=== PATIENT | male | born 1950 | race Caucasian/White ===

== ENCOUNTER 2017-07-12 13:21 | Emergency (ER) | payer MEDICARE, BC, OTHER ==
[~2017-07-12] VITALS: Ht 190.5 cm; Wt 127.0 kg
[~2017-07-12 13:21] MED LIST: ALLO300T2; ASPI81CH43; LOSA100T26
[2017-07-12] MEDS ORDERED: SODIUM CHLORIDE 0.9% 1,000 ML IV ONE (13:30)
[2017-07-12] MEDS ORDERED: ONDANSETRON HCL 4 MG/2 ML VIAL IV ONE (13:30)
[2017-07-12] MEDS ORDERED: HYDROmorphone HCL 2 MG/ML VL IV ONE (13:30)
[2017-07-12 14:17] LABS: Basophils # (auto) 0.1 uL; Basophils % (auto) 1.3 % (0.0-2.0); Eosinophils # (auto) 0.3 uL; Eosinophils % (auto) 3.9 % (0.0-7.0); Hematocrit 41.4 % (41.0-53.0); Hemoglobin 13.8 g/dL (13.5-17.5); Lymphocytes # (auto) 1.4 uL; Lymphocytes % (auto) 21.3 % (10.0-50.0); Mean Corpuscular Hemoglobin 33.5 pg (28.0-32.0); Mean Corpuscular Hgb Conc. 33.4 g/dL (32.0-36.0); Mean Corpuscular Volume 100.2 fL (80.0-100.0); Mean Platelet Volume 8.8 fL (6.9-10.8); Monocytes # (auto) 0.5 uL; Monocytes % (auto) 7.3 % (0.0-12.0); Neutrophils # (auto) 4.4 uL; Neutrophils % (auto) 66.2 % (37.0-80.0); Nucleated Red Blood Cells % 0.1 %; Platelet Count (auto) 143 10^3/uL (140-450); Red Cell Distribution Width 15.1 % (11.8-14.3); White Blood Cell 6.7 10^3/uL (4.4-10.8)
[2017-07-12 14:27] LABS: Albumin 3.1 g/dL (3.4-5.0); BUN/Creatinine Ratio 55.6; Bilirubin, Total 0.8 mg/dL (0.2-1.0); Potassium 4.6 mmol/L (3.5-5.1); Total Protein 7.1 g/dL (6.4-8.2)
[2017-07-12 14:36] VITALS: BP 147/66
== END 2017-07-12 17:49 | disposition home or self-care (01) ==
LOC: ER 13:21 → EDBD 13:21 → ER 17:49
DX: N39.0 Urinary tract infection, site not specified (principal); E87.1 Hypo-osmolality and hyponatremia; E86.0 Dehydration; E03.9 Hypothyroidism, unspecified; I10 Essential (primary) hypertension; E78.5 Hyperlipidemia, unspecified; F17.210 Nicotine dependence, cigarettes, uncomplicated; Z79.82 Long term (current) use of aspirin; Z88.0 Allergy status to penicillin
CPT/HCPCS: 36415; 74176; 80053; 81002; 85025; 96361; 96374; 96375; 99285; J1170; J2405

== ENCOUNTER 2017-08-08 12:18 | Inpatient (IN) | payer MEDICARE, OTHER ==
[~2017-08-08] VITALS: Ht 190.5 cm; Wt 131.0 kg
[~2017-08-08 12:18] MED LIST changes: -LOSA100T26; +LOSA100T33
[2017-08-08] MEDS ORDERED: VANCOMYCIN 1GM/250ML 250 ML IV ONE (12:45)
[2017-08-08] MEDS ORDERED: FUROSEMIDE 40 MG/4 ML VIAL IV ONE (12:45)
[2017-08-08] MEDS ORDERED: LEVOFLOXACIN 750MG 150 ML IV ONE (12:45)
[2017-08-08 13:29] LABS: Basophils # (auto) 0 uL; Basophils % (auto) 0.3 % (0.0-2.0); Eosinophils # (auto) 0.1 uL; Hematocrit 39.4 % (41.0-53.0); Lymphocytes % (auto) 12.8 % (10.0-50.0); Mean Corpuscular Hemoglobin 33.2 pg (28.0-32.0); Mean Corpuscular Hgb Conc. 33.1 g/dL (32.0-36.0); Mean Corpuscular Volume 100.2 fL (80.0-100.0); Mean Platelet Volume 8.2 fL (6.9-10.8); Monocytes # (auto) 0.6 uL; Monocytes % (auto) 7.9 % (0.0-12.0); Neutrophils # (auto) 5.8 uL; Platelet Count (auto) 102 10^3/uL (140-450); White Blood Cell 7.4 10^3/uL (4.4-10.8)
[2017-08-08 13:44] LABS: B-Type Natriuretic Peptide 16.7 pg/mL (0-100); Temperature: 23.5 C (20.0-25.0)
[2017-08-08] MEDS ORDERED: ALBUTEROL SULF 2.5 MG/0.5ML(0.5%) NEB SOLN NEB PRN (13:45)
[2017-08-08] MEDS ORDERED: TEMAZEPAM 15 MG CAP PO PRN (13:45)
[2017-08-08] MEDS ORDERED: OSELTAMIVIR 75 MG CAP PO ONE (13:45)
[2017-08-08] MEDS ORDERED: LACTULOSE 20Gm/30ML SOLN PO PRN (13:45)
[2017-08-08] MEDS ORDERED: PROMETHAZINE HCL 25 MG/ML 1ML IV PRN (13:45)
[2017-08-08] MEDS ORDERED: NITROGLYCERIN 0.4 MG SL TAB SL PRN (13:45)
[2017-08-08] MEDS ORDERED: MORPHINE SULF INJ 2 MG/ML SYRINGE 1ML IV PRN ×2 (13:45)
[2017-08-08] MEDS ORDERED: ACETAMINOPHEN 500 MG TAB PO PRN (13:45)
[2017-08-08] MEDS ORDERED: LORazepam 0.5 MG TAB PO PRN (13:45)
[2017-08-08] MEDS ORDERED: HYDROcodone-ACET 5/325MG TAB PO PRN (13:45)
[2017-08-08 13:47] LABS: Albumin 3.1 g/dL (3.4-5.0); Alkaline Phosphatase 86 U/L (45-117); Anion Gap 9 (5-15); Aspartate Aminotransferase 21 U/L (15-37); BUN/Creatinine Ratio 36.2; Blood Urea Nitrogen 21 mg/dL (7-18); Carbon Dioxide 26 mmol/L (21-32); Chloride 95 mmol/L (98-107); GFR African American 179 mL/min; GFR Non-African American 148 mL/min; Glucose 94 mg/dL (74-106); Sodium 130 mmol/L (136-145); Total Protein 7.3 g/dL (6.4-8.2)
[2017-08-08 13:56] LABS: Lactic Acid w/Reflex 2.2 mmol/L (0.4-2.0)
[2017-08-08] MEDS ORDERED: CLINDAMYCIN 600MG IV 50 ML IV SCH (14:00)
[2017-08-08 14:21] LABS: REFLEX LACTIC ACID YES OR NO YES
[2017-08-08 14:23] LABS: Urine Bilirubin Negative (Negative); Urine Blood Negative /uL (Negative); Urine Color Yellow (Yellow); Urine Glucose Normal (Normal); Urine Ketone Negative (Negative); Urine Nitrite POSITIVE (Negative); Urine RBC <1 /hpf (0 - 3); Urine Urobilinogen Normal (Negative)
[2017-08-08] MEDS: SODIUM CHLORIDE 0.9% 1,000 ML IV SCH (15:14)
[2017-08-08] MEDS ORDERED: FURO20TA3 PO (15:33)
[2017-08-08] MEDS ORDERED: ALLO300T79 PO (15:33)
[2017-08-08] MEDS ORDERED: [UNRECOGNIZED DRUG - CODE] PO (15:33)
[2017-08-08] MEDS ORDERED: ALFU10TA12 PO (15:33)
[2017-08-08] MEDS ORDERED: LEVO175T31 PO (15:33)
[2017-08-08] MEDS ORDERED: LOSA50TA6 PO (15:33)
[2017-08-08] MEDS ORDERED: ASPI-378 PO (15:33)
[2017-08-08] MEDS ORDERED: NICOTINE 14 MG/24HR TOPICAL PATCH TD ONE (15:45)
[2017-08-08] MEDS ORDERED: VANCOMYCIN PER PHARMACY 0 MG IV SCH (17:00)
[2017-08-08] MEDS ORDERED: AZITHROMYCIN 500MG/ 250ML 250 ML IV ONE (17:00)
[2017-08-08] MEDS: ALBUTEROL SULF 2.5 MG/0.5ML(0.5%) NEB SOLN NEB SCH (18:21)
[2017-08-08] MEDS: IPRATROPIUM BROM 0.5 MG/2.5ML INH SOL NEB SCH (18:21)
[2017-08-08 18:59] VITALS: BP 101/62
[2017-08-08 20:20] VITALS: BP 97/62
[2017-08-08] MEDS: VANCOMYCIN 1GM/250ML 250 ML IV SCH (21:35)
[2017-08-08] MEDS: OSELTAMIVIR 75 MG CAP PO SCH (21:47)
[2017-08-08 22:21] VITALS: BP 97/62
[2017-08-09] MEDS: IPRATROPIUM BROM 0.5 MG/2.5ML INH SOL NEB SCH ×4 (00:31→19:36)
[2017-08-09] MEDS: ALBUTEROL SULF 2.5 MG/0.5ML(0.5%) NEB SOLN NEB SCH ×4 (00:31→19:36)
[2017-08-09] MEDS: SODIUM CHLORIDE 0.9% 1,000 ML IV SCH (03:30)
[2017-08-09] MEDS: VANCOMYCIN 1GM/250ML 250 ML IV SCH ×3 (04:36→21:25)
[2017-08-09 04:57] VITALS: BP 112/50
[2017-08-09 06:34] LABS: Basophils # (auto) 0 uL; Basophils % (auto) 0.3 % (0.0-2.0); Eosinophils # (auto) 0.1 uL; Eosinophils % (auto) 2.2 % (0.0-7.0); Hematocrit 35.4 % (41.0-53.0); Hemoglobin 12.2 g/dL (13.5-17.5); Mean Corpuscular Hemoglobin 33.5 pg (28.0-32.0); Mean Corpuscular Hgb Conc. 34.3 g/dL (32.0-36.0); Mean Corpuscular Volume 97.7 fL (80.0-100.0); Mean Platelet Volume 8.3 fL (6.9-10.8); Monocytes # (auto) 0.5 uL; Monocytes % (auto) 7.6 % (0.0-12.0); Neutrophils # (auto) 4.8 uL; Neutrophils % (auto) 73.9 % (37.0-80.0); Platelet Count (auto) 85 10^3/uL (140-450); Red Cell Distribution Width 14.7 % (11.8-14.3); White Blood Cell 6.4 10^3/uL (4.4-10.8)
[2017-08-09 06:50] LABS: BUN/Creatinine Ratio 44.4; Calcium 8.5 mg/dL (8.5-10.1); Potassium 3.5 mmol/L (3.5-5.1)
[2017-08-09 09:00] VITALS: BP 105/64
[2017-08-09] MEDS: OSELTAMIVIR 75 MG CAP PO SCH (09:47)
[2017-08-09] MEDS ORDERED: ENOXAPARIN SOD 40 MG/0.4 ML SYRINGE SC SCH (10:00)
[2017-08-09] MEDS ORDERED: AZITHROMYCIN 500MG/ 250ML 250 ML IV SCH (10:00)
[2017-08-09] MEDS ORDERED: LEVOFLOXACIN 500MG 100 ML IV SCH (10:00)
[2017-08-09] MEDS: NICOTINE 14 MG/24HR TOPICAL PATCH TD SCH (10:16)
[2017-08-09] MEDS ORDERED: POTASSIUM CHL 10% (20 MEQ/15ML) 15ml ORAL SOLN PO ONE (10:45)
[2017-08-09] MEDS ORDERED: cefTRIAXone 1GM/10ml IVPUSH 10 ML IV ONE (10:45)
[2017-08-09] MEDS ORDERED: FUROSEMIDE 20 MG/2 ML VIAL IV ONE (10:45)
[2017-08-09] MEDS ORDERED: ASPirin 81 mg TAB PO ONE (11:00)
[2017-08-09] MEDS ORDERED: LEVOTHYROXINE SODIUM 50 MCG TAB PO ONE (11:00)
[2017-08-09 13:00] VITALS: BP 161/92
[2017-08-09 17:12] VITALS: BP 114/59
[2017-08-10 00:13] LABS: Allen Test Yes; Base Excess 1.6 mmol/L (-2.0-2.0); Blood 02Sat 75.8 % (96-100); Blood COHb 1.2 % (0.5-1.5); Blood MetHb 0.2 % (0.0-1.5); HCO3 24.9 mmol/L (22-26.0); HHb 23.9 % (0.0-5.0); MODE MED NEB; O2Hb 74.7 % (94.0-97.0); PO2 39.7 mmHg (80.0-100.0); PO2(T) 39.7 mmHg (80.0-100.0); Room 0219T; Sample Type Arterial
[2017-08-10] MEDS: ALBUTEROL SULF 2.5 MG/0.5ML(0.5%) NEB SOLN NEB SCH ×4 (00:14→19:45)
[2017-08-10] MEDS: IPRATROPIUM BROM 0.5 MG/2.5ML INH SOL NEB SCH ×4 (00:14→19:48)
[2017-08-10] MEDS: LEVOTHYROXINE SODIUM 50 MCG TAB PO SCH (05:49)
[2017-08-10] MEDS: VANCOMYCIN 1GM/250ML 250 ML IV SCH ×3 (05:49→21:12)
[2017-08-10 05:56] LABS: Basophils # (auto) 0 uL; Basophils % (auto) 0.5 % (0.0-2.0); Eosinophils # (auto) 0.2 uL; Eosinophils % (auto) 2.1 % (0.0-7.0); Hematocrit 35.2 % (41.0-53.0); Hemoglobin 11.9 g/dL (13.5-17.5); Lymphocytes # (auto) 1.2 uL; Mean Corpuscular Hemoglobin 33.6 pg (28.0-32.0); Mean Corpuscular Hgb Conc. 33.7 g/dL (32.0-36.0); Mean Corpuscular Volume 99.8 fL (80.0-100.0); Mean Platelet Volume 8.6 fL (6.9-10.8); Monocytes # (auto) 0.6 uL; Monocytes % (auto) 8.2 % (0.0-12.0); Neutrophils # (auto) 5.2 uL; Neutrophils % (auto) 72.2 % (37.0-80.0); Nucleated Red Blood Cells % 0.1 %; Platelet Count (auto) 85 10^3/uL (140-450); Red Cell Distribution Width 14.7 % (11.8-14.3); White Blood Cell 7.1 10^3/uL (4.4-10.8)
[2017-08-10 06:07] LABS: Albumin 2.4 g/dL (3.4-5.0); BUN/Creatinine Ratio 43.2; Calcium 8.3 mg/dL (8.5-10.1); Potassium 3.5 mmol/L (3.5-5.1); Total Protein 6.2 g/dL (6.4-8.2)
[2017-08-10 06:08] VITALS: BP 115/64
[2017-08-10 09:00] VITALS: BP 115/64
[2017-08-10] MEDS: cefTRIAXone 1GM/10ml IVPUSH 10 ML IV SCH (09:10)
[2017-08-10] MEDS: ASPirin 81 mg TAB PO SCH (09:10)
[2017-08-10] MEDS: ALLOPURINOL 300 MG TAB PO SCH (09:11)
[2017-08-10] MEDS: NICOTINE 14 MG/24HR TOPICAL PATCH TD SCH (09:12)
[2017-08-10] MEDS: PROPRANOLOL HCL 20 MG TAB PO SCH (09:13)
[2017-08-10] MEDS ORDERED: FUROSEMIDE 20 MG/2 ML VIAL IV ONE (10:00)
[2017-08-10] MEDS ORDERED: POTASSIUM CHL 10% (20 MEQ/15ML) 15ml ORAL SOLN PO ONE (10:00)
[2017-08-10 13:00] VITALS: BP 131/89
[2017-08-10 21:01] VITALS: BP 93/56
[2017-08-11] MEDS: ALBUTEROL SULF 2.5 MG/0.5ML(0.5%) NEB SOLN NEB SCH ×4 (00:35→18:24)
[2017-08-11] MEDS: IPRATROPIUM BROM 0.5 MG/2.5ML INH SOL NEB SCH ×4 (00:35→18:24)
[2017-08-11] MEDS: VANCOMYCIN 1GM/250ML 250 ML IV SCH (03:19)
[2017-08-11 05:00] VITALS: BP 113/69
[2017-08-11] MEDS: LEVOTHYROXINE SODIUM 50 MCG TAB PO SCH (05:58)
[2017-08-11 06:15] LABS: BUN/Creatinine Ratio 33.9; Calcium 8.1 mg/dL (8.5-10.1); Potassium 3.9 mmol/L (3.5-5.1)
[2017-08-11 09:00] VITALS: BP 91/61
[2017-08-11] MEDS: cefTRIAXone 1GM/10ml IVPUSH 10 ML IV SCH (09:01)
[2017-08-11] MEDS: PROPRANOLOL HCL 20 MG TAB PO SCH (10:00)
[2017-08-11] MEDS: NICOTINE 14 MG/24HR TOPICAL PATCH TD SCH (10:36)
[2017-08-11] MEDS: ALLOPURINOL 300 MG TAB PO SCH (10:36)
[2017-08-11] MEDS: ASPirin 81 mg TAB PO SCH (10:36)
[2017-08-11 12:35] VITALS: BP 87/51
[2017-08-11 17:00] VITALS: BP 116/68
[2017-08-11 21:55] VITALS: BP 116/68
[2017-08-11 22:00] VITALS: BP 105/63
[2017-08-12] MEDS: IPRATROPIUM BROM 0.5 MG/2.5ML INH SOL NEB SCH ×4 (00:13→19:20)
[2017-08-12] MEDS: ALBUTEROL SULF 2.5 MG/0.5ML(0.5%) NEB SOLN NEB SCH ×4 (00:13→19:20)
[2017-08-12 05:00] VITALS: BP 103/63
[2017-08-12 05:24] LABS: Eosinophils # (auto) 0.2 uL; Red Cell Distribution Width 14.5 % (11.8-14.3)
[2017-08-12 05:26] LABS: Basophils # (auto) 0 uL; Basophils % (auto) 0.6 % (0.0-2.0); Eosinophils % (auto) 3.7 % (0.0-7.0); Hematocrit 35.4 % (41.0-53.0); Hemoglobin 12.1 g/dL (13.5-17.5); Lymphocytes # (auto) 1.4 uL; Lymphocytes % (auto) 21.4 % (10.0-50.0); Mean Corpuscular Hemoglobin 33.4 pg (28.0-32.0); Mean Corpuscular Hgb Conc. 34.1 g/dL (32.0-36.0); Mean Corpuscular Volume 98.1 fL (80.0-100.0); Mean Platelet Volume 8.4 fL (6.9-10.8); Monocytes # (auto) 0.6 uL; Monocytes % (auto) 9.8 % (0.0-12.0); Neutrophils # (auto) 4.2 uL; Neutrophils % (auto) 64.5 % (37.0-80.0); Platelet Count (auto) 136 10^3/uL (140-450); White Blood Cell 6.6 10^3/uL (4.4-10.8)
[2017-08-12 05:38] LABS: INR 0.98 (0.9-1.15); Prothrombin Time 10.7 sec (9.37-12.3)
[2017-08-12 05:41] LABS: Calcium 8.3 mg/dL (8.5-10.1); Potassium 4.2 mmol/L (3.5-5.1)
[2017-08-12 05:44] LABS: Albumin 2.3 g/dL (3.4-5.0); Magnesium 2.2 mg/dL (1.6-2.6)
[2017-08-12 05:47] LABS: Bilirubin, Total 0.8 mg/dL (0.2-1.0); Total Protein 6.2 g/dL (6.4-8.2)
[2017-08-12 06:13] VITALS: BP 103/63
[2017-08-12] MEDS: LEVOTHYROXINE SODIUM 50 MCG TAB PO SCH (06:20)
[2017-08-12 09:00] VITALS: BP 115/74
[2017-08-12] MEDS: PROPRANOLOL HCL 20 MG TAB PO SCH (10:00)
[2017-08-12] MEDS ORDERED: FUROSEMIDE 20 MG/2 ML VIAL IV ONE (10:15)
[2017-08-12] MEDS ORDERED: POTASSIUM CHL 10% (20 MEQ/15ML) 15ml ORAL SOLN PO ONE (10:15)
[2017-08-12] MEDS ORDERED: DOCUSATE SOD 100 MG CAP PO ONE (10:15)
[2017-08-12] MEDS ORDERED: LACTULOSE 20Gm/30ML SOLN PO ONE (10:15)
[2017-08-12] MEDS: ALLOPURINOL 300 MG TAB PO SCH (10:35)
[2017-08-12] MEDS: NICOTINE 14 MG/24HR TOPICAL PATCH TD SCH (10:36)
[2017-08-12] MEDS: ASPirin 81 mg TAB PO SCH (10:36)
[2017-08-12] MEDS: cefTRIAXone 1GM/10ml IVPUSH 10 ML IV SCH (10:39)
[2017-08-12 13:00] VITALS: BP 117/68
[2017-08-12 17:00] VITALS: BP 126/79
[2017-08-12] MEDS: VANCOMYCIN 1GM/250ML 250 ML IV SCH (17:41)
[2017-08-12] MEDS: MULTIPLE VITAMINS W/ MINERALS TAB PO SCH (17:41)
[2017-08-12 22:00] VITALS: BP 111/52
[2017-08-12] MEDS: ASCORBIC ACID 500 MG TAB PO SCH (22:14)
[2017-08-13] MEDS: IPRATROPIUM BROM 0.5 MG/2.5ML INH SOL NEB SCH ×4 (00:43→19:22)
[2017-08-13] MEDS: ALBUTEROL SULF 2.5 MG/0.5ML(0.5%) NEB SOLN NEB SCH ×4 (00:43→19:17)
[2017-08-13 06:00] VITALS: BP 119/51
[2017-08-13] MEDS: LEVOTHYROXINE SODIUM 50 MCG TAB PO SCH (06:21)
[2017-08-13 07:58] LABS: Albumin 2.3 g/dL (3.4-5.0); BUN/Creatinine Ratio 40.4; Bilirubin, Total 0.9 mg/dL (0.2-1.0); Calcium 8.4 mg/dL (8.5-10.1); Potassium 4.1 mmol/L (3.5-5.1); Total Protein 6.2 g/dL (6.4-8.2)
[2017-08-13] MEDS: cefTRIAXone 1GM/10ml IVPUSH 10 ML IV SCH ×2 (09:00→11:32)
[2017-08-13] MEDS: PROPRANOLOL HCL 20 MG TAB PO SCH (10:00)
[2017-08-13] MEDS ORDERED: FUROSEMIDE 40 MG/4 ML VIAL IV ONE (10:15)
[2017-08-13] MEDS ORDERED: POTASSIUM CHL 10% (20 MEQ/15ML) 15ml ORAL SOLN PO ONE (10:15)
[2017-08-13] MEDS: ASPirin 81 mg TAB PO SCH (11:32)
[2017-08-13] MEDS: ASCORBIC ACID 500 MG TAB PO SCH ×2 (11:32→22:10)
[2017-08-13] MEDS: ALLOPURINOL 300 MG TAB PO SCH (11:33)
[2017-08-13] MEDS: NICOTINE 14 MG/24HR TOPICAL PATCH TD SCH (11:33)
[2017-08-13] MEDS: MULTIPLE VITAMINS W/ MINERALS TAB PO SCH (11:33)
[2017-08-13] MEDS: VANCOMYCIN 1GM/250ML 250 ML IV SCH (17:10)
[2017-08-13 22:00] VITALS: BP 97/55
[2017-08-14] MEDS: IPRATROPIUM BROM 0.5 MG/2.5ML INH SOL NEB SCH ×3 (00:35→11:48)
[2017-08-14] MEDS: ALBUTEROL SULF 2.5 MG/0.5ML(0.5%) NEB SOLN NEB SCH ×3 (00:35→11:48)
[2017-08-14 05:00] VITALS: BP 95/57
[2017-08-14 06:34] LABS: Albumin 2.2 g/dL (3.4-5.0); BUN/Creatinine Ratio 34.3; Bilirubin, Total 0.5 mg/dL (0.2-1.0); Calcium 8.7 mg/dL (8.5-10.1); Potassium 4.1 mmol/L (3.5-5.1); Total Protein 6.2 g/dL (6.4-8.2)
[2017-08-14] MEDS: LEVOTHYROXINE SODIUM 50 MCG TAB PO SCH (06:58)
[2017-08-14 08:54] VITALS: BP 109/72
[2017-08-14] MEDS: cefTRIAXone 1GM/10ml IVPUSH 10 ML IV SCH (10:00)
[2017-08-14] MEDS: PROPRANOLOL HCL 20 MG TAB PO SCH (10:00)
[2017-08-14] MEDS: ASCORBIC ACID 500 MG TAB PO SCH (12:13)
[2017-08-14] MEDS: MULTIPLE VITAMINS W/ MINERALS TAB PO SCH (12:13)
[2017-08-14] MEDS: ASPirin 81 mg TAB PO SCH (12:13)
[2017-08-14] MEDS: ALLOPURINOL 300 MG TAB PO SCH (12:13)
[2017-08-14] MEDS: NICOTINE 14 MG/24HR TOPICAL PATCH TD SCH (12:14)
[2017-08-14 12:28] VITALS: BP 123/76
== END 2017-08-14 14:45 | DRG 871 ==
LOC: EDUNIT# 12:18 → ER 12:18 → EDBD 12:18 → TELE 12:19 → TELE-CENTR 20:11 → CENTRAL 21:39 → TELE-CENTR 21:41
PROVIDERS: ADMIT Internal Medicine; ATTEND Internal Medicine
DX: A41.89 Other specified sepsis (principal); J69.0 Pneumonitis due to inhalation of food and vomit; I50.33 Acute on chronic diastolic (congestive) heart failure; G71.0 Muscular dystrophy; L03.115 Cellulitis of right lower limb; L03.116 Cellulitis of left lower limb; E66.9 Obesity, unspecified; E03.9 Hypothyroidism, unspecified; D69.6 Thrombocytopenia, unspecified; E78.5 Hyperlipidemia, unspecified; F17.210 Nicotine dependence, cigarettes, uncomplicated; I11.0 Hypertensive heart disease with heart failure; K59.00 Constipation, unspecified; Z98.84 Bariatric surgery status; Z68.36 Body mass index [BMI] 36.0-36.9, adult; Z88.0 Allergy status to penicillin
CPT/HCPCS: 36415; 36600; 71010; 80048; 80053; 80202; 81001; 82805; 83605; 83735; 83880; 84443; 84484; 85025; 85610; 87040; 87070; 87205; 87400; 92610; 93005; 93306; 93970; 94640; 94660; 96365; 96366; 96367; J1956; J3490

== ENCOUNTER → 2017-10-16 | Outpatient (CLI) | payer OTHER ==
[~2017-10-16] MED LIST changes: +ALFU10TA12 PO; -ALLO300T2; +ALLO300T79 PO; +ASPI-378 PO; -ASPI81CH43; +FURO20TA3 PO; +LEVO175T31 PO; -LOSA100T33; +LOSA50TA6 PO; +[UNRECOGNIZED DRUG - CODE] PO
== END | disposition home or self-care (01) ==
LOC: LAB 16:14
PROVIDERS: ATTEND Urology
DX: N39.0 Urinary tract infection, site not specified (principal); R33.9 Retention of urine, unspecified; R32 Unspecified urinary incontinence
CPT/HCPCS: 87086; 87088; 87186

== ENCOUNTER 2019-06-03 08:40 | Inpatient (IN) | payer MEDICARE, BC, OTHER ==
[~2019-06-03] VITALS: Ht 190.5 cm; Wt 120.3 kg
[~2019-06-03 08:40] MED LIST changes: +ALLO-52 PO; -ALLO300T79 PO; -LEVO175T31 PO; +LOSA-69 PO; -LOSA50TA6 PO; +[UNRECOGNIZED DRUG - CODE] PO; -[UNRECOGNIZED DRUG - CODE] PO
[2019-06-03] MEDS ORDERED: IPRATROPIUM BROM 0.5 MG/2.5ML INH SOL HHN ONE (09:45)
[2019-06-03] MEDS ORDERED: ALBUTEROL SULF 2.5 MG/0.5ML(0.5%) NEB SOLN HHN ONE (09:45)
[2019-06-03] MEDS ORDERED: FUROSEMIDE 40 MG/4 ML VIAL IV ONE (09:45)
[2019-06-03] MEDS ORDERED: LEVOFLOXACIN 500MG 100 ML IV ONE (09:45)
[2019-06-03 10:18] LABS: Basophils # (auto) 0 uL; Basophils % (auto) 0.6 % (0.0-2.0); Eosinophils # (auto) 0.1 uL; Eosinophils % (auto) 1.5 % (0.0-7.0); Hematocrit 43.8 % (41.0-53.0); Hemoglobin 14.2 g/dL (13.5-17.5); Lymphocytes # (auto) 1.1 uL; Lymphocytes % (auto) 14.6 % (10.0-50.0); Mean Corpuscular Hemoglobin 31.2 pg (28.0-32.0); Mean Corpuscular Hgb Conc. 32.5 g/dL (32.0-36.0); Mean Corpuscular Volume 96.1 fL (80.0-100.0); Monocytes # (auto) 0.8 uL; Monocytes % (auto) 10.5 % (0.0-12.0); Neutrophils # (auto) 5.3 uL; Neutrophils % (auto) 72.8 % (37.0-80.0); Nucleated Red Blood Cells % 0.1 %; Platelet Count (auto) 230 10^3/uL (140-450); Red Blood Cells 4.56 10^6/uL (4.5-5.90); Red Cell Distribution Width 15.8 % (11.8-14.3); White Blood Cell 7.3 10^3/uL (4.4-10.8)
[2019-06-03 10:25] LABS: Albumin 2.8 g/dL (3.4-5.0); Anion Gap 8 (5-15); BUN/Creatinine Ratio 41.3; Blood Urea Nitrogen 19 mg/dL (7-18); Calcium 9.6 mg/dL (8.5-10.1); Carbon Dioxide 28 mmol/L (21-32); Chloride 97 mmol/L (98-107); GFR African American 233 mL/min; GFR Non-African American 192 mL/min; Glucose 100 mg/dL (74-106); Potassium 3.7 mmol/L (3.5-5.1); Sodium 133 mmol/L (136-145)
[2019-06-03 10:34] LABS: Alanine Aminotransferase 19 U/L (16-61); Alkaline Phosphatase 95 U/L (45-117); Aspartate Aminotransferase 15 U/L (15-37); Bilirubin, Total 0.9 mg/dL (0.2-1.0); Total Protein 7.6 g/dL (6.4-8.2)
[2019-06-03] MEDS ORDERED: MORPHINE SULF INJ 2 MG/ML SYRINGE 1ML IV PRN ×2 (11:45)
[2019-06-03] MEDS ORDERED: ACETAMINOPHEN 500 MG TAB PO PRN (11:45)
[2019-06-03] MEDS ORDERED: NITROGLYCERIN 0.4 MG SL TAB SL PRN (11:45)
[2019-06-03] MEDS ORDERED: HYDROcodone-ACET 5/325MG TAB PO PRN (11:45)
[2019-06-03] MEDS ORDERED: ONDANSETRON HCL 4 MG/2 ML VIAL IV PRN (11:45)
[2019-06-03] MEDS ORDERED: ACETYLCYSTEINE 10 %(100MG/ML) SOL 4ML NEB ONE (11:45)
[2019-06-03] MEDS ORDERED: cefTRIAXone 1GM/50ML D5W 50 ML IV ONE (12:30)
[2019-06-03] MEDS ORDERED: methylPREDNISolone SOD SUCC 125 MG/2 ML VL IV ONE (12:30)
[2019-06-03] MEDS ORDERED: ASPirin-EC 81 mg tab PO ONE (12:30)
[2019-06-03] MEDS ORDERED: ALLOPURINOL 300 MG TAB PO ONE (12:30)
[2019-06-03] MEDS ORDERED: FAMOTIDINE 20 MG TAB PO ONE (12:30)
[2019-06-03] MEDS ORDERED: LOSARTAN POTASSIUM 50 MG TAB PO ONE (12:30)
[2019-06-03] MEDS ORDERED: AZITHROMYCIN 500MG/ 250ML 250 ML IV ONE (12:30)
[2019-06-03] MEDS ORDERED: FUROSEMIDE 20 MG TAB PO ONE (12:30)
[2019-06-03] MEDS ORDERED: methylPREDNISolone SOD SUCC 125 MG/2 ML VL IV SCH (12:30)
[2019-06-03 14:00] VITALS: BP 111/82
[2019-06-03] MEDS ORDERED: ALBUTEROL SULF 2.5 MG/0.5ML(0.5%) NEB SOLN NEB SCH (14:00)
[2019-06-03] MEDS ORDERED: IPRATROPIUM BROM 0.5 MG/2.5ML INH SOL NEB SCH (14:00)
--- NOTE | 2019-06-03 14:20 | NUR ---
Received patient from ER via gurney, patient VS 111/82, 74, 22, 98%, 98.7. Patient on 3 L NC, and Wong. Patients bed in locked and lowest position with call light within reach. Will continue to monitor.
[2019-06-03 17:00] VITALS: BP 93/61
--- NOTE | 2019-06-03 17:01 | NUR ---
SWALLOW EVALUATED. PATIENT HAS OWN TEETH. PATIENT FOLLOWED ONE STEP DIRECTIONS. PATIENT VERY CONGESTED. VOICE SOUNDED WET PRIOR TO SWALLOW EVALUATION. PATIENT ABLE TO TOLERATE PUREE DIET TEXTURE WITH THIN LIQUIDS WITH NO OVERT SIGNS OR SYMPTOMS OF ASPIRATION. NURSING NOTIFIED.
[2019-06-03] MEDS ORDERED: ALBUTEROL SULF 2.5 MG/0.5ML(0.5%) NEB SOLN HHN SCH (18:00)
--- NOTE | 2019-06-03 19:20 | NUR ---
Opening Shift Note Assumed care of patient, sitting up in bed awake and alert. Patient on 4L NC presenting no S/S of distress or SOB. Denies pain at this time. CHIVO IV patent, secured and saline locked. Instructed on POC and to call for assist PRN, patient verbalizes understanding. Will continue to monitor for changes Q1hr and PRN.
[2019-06-03] MEDS: ACETYLCYSTEINE 20%(200MG/ML) SOL 4ML NEB SCH (19:23)
[2019-06-03] MEDS: ALBUTEROL SULF 2.5 MG/0.5ML(0.5%) NEB SOLN NEB SCH (19:23)
[2019-06-03] MEDS: IPRATROPIUM BROM 0.5 MG/2.5ML INH SOL NEB SCH (19:23)
--- NOTE | 2019-06-03 21:30 | NUR ---
PATIENT ON CPAP MACHINE. PATIENT TOLERATED WELL. RT AT BED SIDE
[2019-06-03] MEDS: methylPREDNISolone SOD SUCC 125 MG/2 ML VL IV SCH (21:47)
--- NOTE | 2019-06-03 21:51 | NUR ---
PATIENT REPOSITIONED FOR COMFORT. PATIENT TOLERATED WELL. TOTAL/ MAX ASSIST NEEDED. WILL CONTINUE TURNING/ REDISTRIBUTING PRESSURE Q2H AND PRN.
[2019-06-03 22:00] VITALS: BP 109/69
[2019-06-04] MEDS: IPRATROPIUM BROM 0.5 MG/2.5ML INH SOL NEB SCH ×5 (00:21→23:55)
[2019-06-04] MEDS: ALBUTEROL SULF 2.5 MG/0.5ML(0.5%) NEB SOLN NEB SCH ×5 (00:21→23:55)
[2019-06-04] MEDS: ACETYLCYSTEINE 20%(200MG/ML) SOL 4ML NEB SCH ×5 (00:22→23:56)
[2019-06-04 05:00] VITALS: BP 109/56
--- NOTE | 2019-06-04 06:05 | NUR ---
RT AT BED SIDE
[2019-06-04 06:15] LABS: Basophils # (auto) 0 uL; Basophils % (auto) 0.1 % (0.0-2.0); Eosinophils # (auto) 0 uL; Hematocrit 39.6 % (41.0-53.0); Hemoglobin 13.2 g/dL (13.5-17.5); Lymphocytes # (auto) 0.8 uL; Lymphocytes % (auto) 13.8 % (10.0-50.0); Mean Corpuscular Hemoglobin 32.1 pg (28.0-32.0); Mean Corpuscular Hgb Conc. 33.4 g/dL (32.0-36.0); Mean Corpuscular Volume 96.1 fL (80.0-100.0); Monocytes # (auto) 0.1 uL; Monocytes % (auto) 2.3 % (0.0-12.0); Neutrophils # (auto) 4.9 uL; Neutrophils % (auto) 83.8 % (37.0-80.0); Platelet Count (auto) 224 10^3/uL (140-450); Red Blood Cells 4.12 10^6/uL (4.5-5.90); Red Cell Distribution Width 15.4 % (11.8-14.3); White Blood Cell 5.9 10^3/uL (4.4-10.8)
[2019-06-04 06:41] LABS: BUN/Creatinine Ratio 46.3; Calcium 9.6 mg/dL (8.5-10.1); Potassium 3.8 mmol/L (3.5-5.1)
--- NOTE | 2019-06-04 07:50 | NUR ---
Coughing, with thick white phlegm noted.
--- NOTE | 2019-06-04 07:50 | NUR ---
Patient awake, hard of hearing, oriented x4, on O2, needs assist with feeding, bed bound. Sitter at bedside.
--- NOTE | 2019-06-04 08:29 | NUR ---
RT NOTE: PT. TOOK OFF BIPAP, PER PT. REQUEST. PT. PLACED ON 3L N/C. PT. TOLERATING WELL. PT. HR 76, RR 20, POX 95% 3L NC. SITTER AT BEDSIDE.
[2019-06-04 09:00] VITALS: BP 98/57
[2019-06-04] MEDS: LOSARTAN POTASSIUM 50 MG TAB PO SCH (10:00)
[2019-06-04] MEDS: cefTRIAXone 1GM/50ML D5W 50 ML IV SCH (10:14)
[2019-06-04] MEDS: methylPREDNISolone SOD SUCC 125 MG/2 ML VL IV SCH ×2 (10:14→21:52)
[2019-06-04] MEDS: FUROSEMIDE 20 MG TAB PO SCH (10:15)
[2019-06-04] MEDS: ALLOPURINOL 300 MG TAB PO SCH (10:15)
[2019-06-04] MEDS: ASPirin-EC 81 mg tab PO SCH (10:16)
[2019-06-04] MEDS: FAMOTIDINE 20 MG TAB PO SCH (10:17)
[2019-06-04] MEDS: AZITHROMYCIN 500MG/ 250ML 250 ML IV SCH (10:17)
--- NOTE | 2019-06-04 10:33 | NUR ---
Dr. Mcgee at bedside. made aware patient's Respiratory Culture In Process since yesterday, 06/03/2019.
--- NOTE | 2019-06-04 11:15 | NUR ---
Paged the Respiratory Therapist.
--- NOTE | 2019-06-04 12:30 | NUR ---
Patient refused to be turned.
[2019-06-04 13:00] VITALS: BP 90/54
--- NOTE | 2019-06-04 13:00 | NUR ---
Dr. Mcgee made aware that Unit SecSam Mckinney called the ENT office but the doctor is out of town. Dr. Mcgee said he already called the ENT and left a message.
--- NOTE | 2019-06-04 13:02 | NUR ---
Patient complained that he choked more on Pureed Diet, stated he eats chopped food at home. Dr. Mcgee made aware. ordered Chopped Fine. Patient was on Cardiac Diet.
--- NOTE | 2019-06-04 16:10 | NUR ---
Turned the patient, redness noted on the buttocks area, no pressure ulcer noted, skin is intact. Sitter at bedside.
--- NOTE | 2019-06-04 16:30 | NUR ---
Lindsay smith at bedside. Patient requested for a laxative if he's unable to have a bowel movement. Terrell Swartz at bedside. Paged Dr. Mgcee.
[2019-06-04 16:58] VITALS: BP 89/56
--- NOTE | 2019-06-04 19:22 | NUR ---
Opening Shift Note Assumed care of patient, awake and alert. Patient on 3L NC. No S/S of distress/SOB or pain. Instructed on POC and to call for assist PRN, will continue to monitor for changes Q1hr and PRN. Sitter at bed side.
[2019-06-04 22:00] VITALS: BP 109/76
--- NOTE | 2019-06-05 02:00 | NUR ---
RAPID INFLUENZA A & B NARES SWAB COLLECTED AND SET TO LAB
[2019-06-05 05:00] VITALS: BP 104/61
[2019-06-05] MEDS: ACETYLCYSTEINE 20%(200MG/ML) SOL 4ML NEB SCH ×3 (06:21→18:21)
[2019-06-05] MEDS: ALBUTEROL SULF 2.5 MG/0.5ML(0.5%) NEB SOLN NEB SCH ×3 (06:21→18:20)
[2019-06-05] MEDS: IPRATROPIUM BROM 0.5 MG/2.5ML INH SOL NEB SCH ×3 (06:21→18:21)
--- NOTE | 2019-06-05 07:22 | NUR ---
Respiratory note: PT AWAKE AND REQUESTING TO COME OFF BIPAP. TOOK PT OFF BIPAP, PLACED ON 3L NC. HR 68, RR 22, POX 95%. BREATH SOUNDS COARSE CRACKLES. PT COUGHING AND REQUESTING DEEP SUCTION, SUCTIONED MODERATE AMOUNT THICK YELLOW SECRETIONS. PT WITH STRONG COUGH, ABLE TO COUGH UP REMAINING SECRETIONS, ORALLY SUCTIONED WITH BEDSIDE YAUNKER LARGE AMOUNT THICK YELLOW/CLEAR FROTHY SECRETIONS. SITTER AT BEDSIDE, AWARE TO SUCTION WITH BEDSIDE YAUNKER IF NEEDED.
--- NOTE | 2019-06-05 07:25 | NUR ---
Opening shift note Report received from NOC RN, Round made with this RN. Patient sitting up in bed coughing after receiving respiratory treatment. Respiratory therapist notified this RN that patient reporting continued congestion and requesting to use home nasal spray at bedside. This RN will ask MD on rounds about nasal spray and if patient can use own medication. Day Tejada, at bedside to assist patient as needed. Patient introduced to this RN and POC, understands to let ross know if any needs.
[2019-06-05 09:00] VITALS: BP 126/49
[2019-06-05] MEDS ORDERED: OXYM-15 (09:07)
[2019-06-05] MEDS ORDERED: FLUT0.05 NAS (09:08)
[2019-06-05] MEDS: ASPirin-EC 81 mg tab PO SCH (09:56)
[2019-06-05] MEDS: FUROSEMIDE 20 MG TAB PO SCH (09:57)
[2019-06-05] MEDS: LOSARTAN POTASSIUM 50 MG TAB PO SCH (09:57)
[2019-06-05] MEDS: FAMOTIDINE 20 MG TAB PO SCH (09:57)
[2019-06-05] MEDS: ALLOPURINOL 300 MG TAB PO SCH (09:57)
[2019-06-05] MEDS: cefTRIAXone 1GM/50ML D5W 50 ML IV SCH (09:58)
[2019-06-05] MEDS: AZITHROMYCIN 500MG/ 250ML 250 ML IV SCH (09:58)
[2019-06-05] MEDS: methylPREDNISolone SOD SUCC 125 MG/2 ML VL IV SCH ×2 (09:58→23:30)
[2019-06-05] MEDS ORDERED: LIDOCAINE HCL 2 % INJ 2ML MPF NEB ONE (10:00)
--- NOTE | 2019-06-05 10:02 | NUR ---
Pulmonology rounded Dr. Mcgee at bedside decided to do therapeutic bronchoscopy, patient verbalized understanding. Discussed home inhalers with MD, who stated to start them.
[2019-06-05] MEDS ORDERED: LIDOCAINE 2% (LOCAL ANESTH.) PF 5ml SDV IN ONE (10:45)
--- NOTE | 2019-06-05 11:10 | NUR ---
Respiratory notified RT Lani notified patient will need lidocaine neb treatment prior to bronchoscopy around 1pm.
[2019-06-05 11:21] LABS: INR 1.01 (0.9-1.15)
[2019-06-05 11:22] LABS: Partial Thromboplastin Time 20.5 sec (23.64-32.05)
--- NOTE | 2019-06-05 12:45 | NUR ---
Midline issue' Patient reporting Midline hurting "feels like cramping" and upon assessment cool to touch. Midline nurse called with busy signal, paged by pbx without call back, CN unable to try IV. Preop notified and requested patient be brought down as is.
--- NOTE | 2019-06-05 12:58 | NUR ---
Respiratory note: LIDOCAINE MEDNEB TX GIVEN FOR BRONCHOSCOPY PREP, PT TOLERATED WELL. LADI CROSS AT BEDSIDE AND AWARE.
[2019-06-05 13:00] VITALS: BP 105/56
[2019-06-05] MEDS: MEPERIDINE HCL (25 MG/ML) 1ML VIAL IM ONE ×2 (13:00→14:30)
--- NOTE | 2019-06-05 13:30 | NUR ---
Transport to Pre-op Patient transported to Bronchoscopy lab, report given to Anne and midline issue reported to Dr. Mcgee.
[2019-06-05 13:34] LABS: Urine Amorphous Crystal MOD /hpf (None Seen); Urine Bacteria FEW /hpf (None Seen); Urine Blood Negative /uL (Negative); Urine Specific Gravity 1.004 (1.001-1.035); Urine WBC 13 /hpf (0 - 3)
[2019-06-05] MEDS ORDERED: SODIUM CHLORIDE LOCK 30 ML ONE (13:34)
[2019-06-05] MEDS ORDERED: EPINEPHrine HCL 1 MG/1 ML AMP ONE (13:34)
[2019-06-05] MEDS ORDERED: LIDOCAINE 2% JELLY 11ml (GLYDO) ONE (13:34)
[2019-06-05] MEDS ORDERED: LIDOCAINE HCL 2% TOP JELLY 5ML TOP ONE ×3 (13:34→14:23)
[2019-06-05] MEDS ORDERED: LIDOCAINE 2%HCL (LOCAL ANESTH.) INJ 20ML MDV ONE (13:36)
[2019-06-05] MEDS ORDERED: fentaNYL CITRATE 100 MCG/2 ML VL ONE (13:47)
[2019-06-05] MEDS: MIDAZOLAM HCL 5 MG/ML-1ML VIAL ONE ×5 (14:03→14:32)
--- NOTE | 2019-06-05 14:40 | NUR ---
Respiratory note: BRONCHOSCOPY WITH DR. UMÑOZ COMPLETED, PROCEDURE WENT WITHOUT INCIDENT. PT NOW WAKING UP AND FOLLOWING COMMANDS. PT TAKEN TO PACU FOR POST-OP. PLACED ON 3L NC, POX 95%.
--- NOTE | 2019-06-05 15:27 | NUR ---
Transfer care Report called to Jillian in [place] to assume care.
[2019-06-05 16:00] VITALS: BP 101/65
--- NOTE | 2019-06-05 16:15 | NUR ---
RECEIVED PATIENT FROM THE OR AFTER A BRONCHOSCOPY, A/O TIMES 4, PATIENT IS DEAF BUT ABLE TO READ LIPS, AND HEARING AIDS PLACED TO THE BOTH EARS. PLACED WEDDING RING TO THE LEFT HAND SECOND FINGER, PLACED ON 02 AT 3L BY THE N/C, MIDLINE TO THE CHIVO NOT WORKING PER THE OR NURSE. SO 22G PLACED TO THE RAC WITH NS AT TKO, PATIENT IS UNABLE TO MOVE HIS EXTREMITIES EXCEPT CAN MOVE THE RT ARM SLIGHTLY, NGUYEN TO GRAVITY, NO COMPLAINTS OF PAIN
--- NOTE | 2019-06-05 17:30 | NUR ---
SITTING UP IN THE BED WATCHNG, TV AND HIS MOVIES, ON HIS TABLET
--- NOTE | 2019-06-05 18:30 | NUR ---
SITTING UP IN THE BED ASKING FOR FOOD BUT HAS NO DIET, ASK IF HE HAS ANY PROBLEM WITH SWALLOWING AND HE STATED NO, WILL ORDER, NO CHANGE IN EQUIPMENT, NO COMPLAINS OF PAIN, WILL CONTINUE TO MONITOR AND GIVE REPORT TO THE NEXT SHIFT
--- NOTE | 2019-06-05 18:36 | NUR ---
INCREASED FIO2 TO 5L NC DUE TO LOW POX. POX NOW 92-94%
[2019-06-05 20:00] VITALS: BP 128/61
[2019-06-05 23:50] VITALS: BP 113/50
[2019-06-06] VITALS (24 sets, daily range): BP systolic 66–119; BP diastolic 26–62
[2019-06-06] MEDS: ALBUTEROL SULF 2.5 MG/0.5ML(0.5%) NEB SOLN NEB SCH ×5 (00:37→22:15)
[2019-06-06] MEDS: IPRATROPIUM BROM 0.5 MG/2.5ML INH SOL NEB SCH ×5 (00:37→22:15)
[2019-06-06] MEDS: ACETYLCYSTEINE 20%(200MG/ML) SOL 4ML NEB SCH ×4 (00:38→18:21)
--- NOTE | 2019-06-06 07:00 | NUR ---
Pt remained stable this shift. Refused turning. Buttocks reddened. Wound care end dietary consults ordered for low Rogelio. Very needy, but pleasant. Hearing aids removed per request and at bedside in home desecrater machine. Has been on Bipap during sleeping hours. IV remains patent. Report given to AM shift, care endorsed.
--- NOTE | 2019-06-06 08:30 | NUR ---
Opening Shift Note Assumed care of patient, laying in bed, arousable to voice, oriented x4. No S/S of pain. SOB on exertion, patient on BIPAP, 40% FIO2, 12/5, oxygen saturation 99%. LT upper arm midline with good blood return flow. See interventions for complete assessment. Bed locked on low position, side rails up x2, bed alarms on at all times, call sal within reach, instructed on POC and to call for assist PRN, will continue to monitor for changes Q1hr and PRN.
[2019-06-06] MEDS ORDERED: FLUTICASONE PROP NASAL SPR 0.05 % (50MCG) 16GM EACHNOSTRI ONE (10:00)
--- NOTE | 2019-06-06 10:00 | NUR ---
Patient switched from BIPAP to 3 LPM oxygen via nasal cannula, oxygen saturation 90's. Will continue to monitor.
[2019-06-06] MEDS: cefTRIAXone 1GM/50ML D5W 50 ML IV SCH (10:04)
[2019-06-06] MEDS: AZITHROMYCIN 500MG/ 250ML 250 ML IV SCH (10:04)
[2019-06-06] MEDS: methylPREDNISolone SOD SUCC 125 MG/2 ML VL IV SCH ×2 (10:05→23:05)
--- NOTE | 2019-06-06 10:05 | NUR ---
PT taken off Bipap and placed on 4 l/m nasal cannuel. LADI Salinas at bedside.
[2019-06-06] MEDS: LOSARTAN POTASSIUM 50 MG TAB PO SCH (10:06)
[2019-06-06] MEDS: ALLOPURINOL 300 MG TAB PO SCH (10:07)
[2019-06-06] MEDS: FAMOTIDINE 20 MG TAB PO SCH (10:07)
[2019-06-06] MEDS: FUROSEMIDE 20 MG TAB PO SCH (10:07)
[2019-06-06] MEDS: ASPirin-EC 81 mg tab PO SCH (10:07)
--- NOTE | 2019-06-06 11:00 | NUR ---
Patient able to have soft, brown bowel movement with the use of Lindsay. Patient given perineal care. Skin integrity assessed for any changes, noted non-blanchable redness on sacrum, wound photograph taken for reference. Linens changed. Patient repositioned for comfort.
--- NOTE | 2019-06-06 11:57 | NUR ---
Patient placed back to BIPAP 40% FIO2, 12/5, oxygen saturation 90%. Will continue to monitor.
--- NOTE | 2019-06-06 11:58 | NUR ---
Nutrition Assessment Notes please see attached link for complete assessment Est. Needs ABW [id number] kcal (23-25 kcal/kgBW), 80-100 gms pro (0.8-1.0 gms/kgBW). Will continue to monitor pertinent labs and reassess nutrient need prn Addendum: 06/06/19 at [address] Amended: Links added.
--- NOTE | 2019-06-06 12:20 | NUR ---
PATIENT WITH INCREASED RESPIRATIONS, O2 SAT DECREASING NOW 84% ON BIPAP. CALL OUT TO RT AND DR. GARCIA TO UPDATE.
--- NOTE | 2019-06-06 12:30 | NUR ---
DR. GARCIA CALLED BACK SEE EMR FOR NEW ORDERS.
[2019-06-06] MEDS ORDERED: LORazepam 2MG/ML-1ML VIAL ONE (12:37)
--- NOTE | 2019-06-06 12:40 | NUR ---
RT HERE TO DRAW STAT ABG. SEE RESULTS.
[2019-06-06] MEDS ORDERED: LORazepam 2MG/ML-1ML VIAL IV ONE (12:45)
--- NOTE | 2019-06-06 13:50 | NUR ---
Dr Yen at bedside, updated on patient's status. Patient seen and examined. Will carry out new orders.
--- NOTE | 2019-06-06 14:00 | NUR ---
Patient's daughter Analyza at bedside, updated on patient's status and POC, daughter verbalized understanding. All questions and concerns addressed.
--- NOTE | 2019-06-06 15:00 | NUR ---
Paged Dr Yen for ABG report, awaiting call back.
--- NOTE | 2019-06-06 16:00 | NUR ---
Dr Yen at bedside, updated on patient's status, chest xray and ABG report. Patient seen and examined. Spoke to patient and daughter at bedside. Plan to intubate patient and transfer to ICU. safe and vault installerLADI martins.
[2019-06-06] MEDS ORDERED: SUCCINYLCHOLINE CHLORIDE 20 MG/ML 10ML VIAL IV ONE (16:17)
[2019-06-06] MEDS ORDERED: ETOMIDATE (2MG/ML) 20ML VIAL IV ONE (16:17)
[2019-06-06] MEDS ORDERED: LORazepam 2MG/ML-1ML VIAL IV PRN (16:30)
[2019-06-06] MEDS ORDERED: MORPHINE SULFATE 4 MG/ML SYR/VIAL IV PRN (16:30)
[2019-06-06] MEDS ORDERED: MIDAZOLAM HCL 1MG/1ML-2 ML VIAL ONE (16:41)
[2019-06-06] MEDS ORDERED: VANCOMYCIN PER PHARMACY 1,000 MG IV SCH (16:45)
--- NOTE | 2019-06-06 16:50 | NUR ---
Patient's hearing aid and toggle press folder and feeder, cellphone, Ipad and other personal belongings give to daughter.
[2019-06-06] MEDS ORDERED: MIDAZOLAM DRIP 50 mg/50mL 50 ML IV ONE (16:55)
--- NOTE | 2019-06-06 17:00 | NUR ---
Dr Yen and Dr King called regarding patient's respiratory status. Order received for intubation. Viviana Flood RN and Turner PAUL notified and at bedside. Dr Yen instructed patient and daughter Analyssa on need for intubation and possible sedation while on ventilator. Patient intubated by Dr King with size 8 ETT, 26 at the lip. Sanam StillPsychology Fellow notified, patient transferred to ICU. Patient care transferred to Jose BLEDSOE.
--- NOTE | 2019-06-06 17:10 | NUR ---
RECEIVED PATIENT FROM [facility] ON VENTILATOR, ON VERSED FOR SEDATION, PATIENT MOVING ALL EXTREMITIES AT THIS TIME. ABDOMEN SOFT AND ROUND, NGUYEN DRAINING CLEAR, YELLOW URINE AT THIS TIME. LEFT ARM SWOLLEN AT MIDLINE SITE
[2019-06-06] MEDS ORDERED: MIDAZOLAM HCL 5 MG/ML-1ML VIAL IV ONE (17:30)
[2019-06-06] MEDS ORDERED: NOREPINEPHRINE 8 MG/250ML KIT 250 ML IV ONE (18:08)
--- NOTE | 2019-06-06 18:12 | NUR ---
ADELAIDE HOWARD NP, REGARDING PT'S SBP 60-70'S. WHILE WAITING FOR HIS CALL BACK, DR MUÑOZ CALLED TO CHECK ON THE PT AND WAS MADE AWARE OF LOW BP. ORDERS OBTAINED FOR NS BOLUS 500 ML X1 AND LEVOPHED DRIP IF NEEDED.
[2019-06-06] MEDS ORDERED: SODIUM CHLORIDE 0.9% 500 ML IV ONE (18:15)
--- NOTE | 2019-06-06 18:35 | NUR ---
Respiratory note: SPUTUM SENT TO LAB
[2019-06-06] MEDS: VANCOMYCIN 1,500 MG in D5W 5% 250 ML IV SCH (18:37)
[2019-06-06] MEDS: NOREPINEPHRINE 8 MG/250ML KIT 250 ML IV SCH (18:38)
[2019-06-06] MEDS: fentaNYL Drip 2500mCg/250mlNS 250 ML IV SCH (18:38)
[2019-06-06] MEDS: MIDAZOLAM DRIP 50 mg/50mL 50 ML IV SCH ×2 (18:39→18:53)
--- NOTE | 2019-06-06 18:45 | NUR ---
POSSIBLE EXTRAVASION AT IV SITE LEFT LEG. IV DISCONTINUED. EXTRAVASION PROTOCOL INITIATED
--- NOTE | 2019-06-06 19:00 | NUR ---
OPENING NOTE ASSUMED CARE OF PATIENT AT THIS TIME. REPORT RECEIVED FROM DAY SHIFT RN. POC REVIEWED. HEAD TO TOE ASSESSMENT COMPLETE, SEE INTERVENTION SPREADSHEET FOR COMPLETE DETAILS. RECEIVED PT INTUBATED AND SEDATED. NGUYEN CATHETER DRAINING TO GRAVITY. SEE IV NOTES FOR IV INFORMATION. SKIN INTACT. SUCTION AND BVM AT BEDSIDE. WILL MONITOR PT CAREFULLY.
--- NOTE | 2019-06-06 19:18 | NUR ---
DR. MUÑOZ PAGED TO NOTIFY OF ABG RESULTS. AWAITING CALLBACK
--- NOTE | 2019-06-06 19:21 | NUR ---
Respiratory note: MESSAGE LEFT FOR DR. MUÑOZ REGARDING ABG RESULTS, AWAITING CALL BACK.
[2019-06-06] MEDS ORDERED: NITROGLYCERIN 2% OINT 1GM PKG TD ONE (19:22)
--- NOTE | 2019-06-06 19:30 | NUR ---
EXTRAVASATION PROTOCOL INITIATED FOR POSSIBLE I.V. INFILTRATE ON RIGHT GUARDADO. PER REPORT LEVO HAD BEEN TRANSFUSED IN IV. DAY SHIFT RN NOTED COOLNESS AND WHITE COLOR TO AREA ABOVE IV. IV REMOVED, PRESSURE DRESSING APPLIED. LOWER EXTREMITY ELEVATED, ICE PACK PLACED ON LEG. NITRO PASTE PROTOCOL INITIATED. WOUND CARE PHOTO TAKEN AND PLACED IN FOLDER. WILL CONTINUE TO MONITOR CAREFULLY.
[2019-06-06] MEDS ORDERED: VANCOMYCIN 1,250 MG in D5W 5% 250 ML IV SCH (20:00)
--- NOTE | 2019-06-06 21:14 | NUR ---
OGT PLACED AT 60 CM. PT TOLERATED WELL. POSITIVE PLACEMENT ASSESSED. CLAMPED AT THIS TIME.
[2019-06-06] MEDS: D5W/SOD CHL 0.45%/KCL 20MEQ 1,000 ML IV SCH (21:37)
[2019-06-06 22:29] LABS: BUN/Creatinine Ratio 59.7; Calcium 9.1 mg/dL (8.5-10.1); Potassium 3.9 mmol/L (3.5-5.1)
--- NOTE | 2019-06-06 22:46 | NUR ---
HOSPITALIST INFORMED PT HAS BIGEMINAL PVC'S NON PERFUSION. INCREASING TITRATION OF LEVOPHED. HR READS IN 80'S ON MONITOR, CHECKED HR WITH ULTRA SOUND. PERFUSING HR BETWEEN 40-60. ORDER FOR TROP LEVEL, STAT EKG, START DOPAMINE GTT FOR HR. BMP AND MAG PLACED. WILL CONTINUE TO ASSESS PT STATUS.
[2019-06-06] MEDS: DOPamine 1600MCG/ML D5W 250 ML IV SCH (23:05)
[2019-06-06] MEDS: MEROPENEM 1GM IVPB 100 ML IV SCH (23:05)
--- NOTE | 2019-06-06 23:35 | NUR ---
SEDATION VACATION, NOT APPROPRIATE AT THIS TIME Addendum: 06/06/19 at 2337 by NEHEMIAS LANDON RN Amended: Links added.
--- NOTE | 2019-06-06 23:59 | NUR ---
PT DID NOT TOLERATE TURN. PT TURNED AND REPOSITIONED, PT THRASHING HEAD, TRYING TO OPEN EYES. HR INCREASE TO 130'S, RR INCREASE TO 25, O2 DROPPED TO 88%. BLOOD DECREASE TO 72SBP. SEDATION INCREASED, COMFORT MEASURES PROVIDED.
[2019-06-07] VITALS (78 sets, daily range): BP systolic 75–135; BP diastolic 31–74
[2019-06-07] MEDS ORDERED: ALBUMIN 5% 250 ML IV ONE (01:15)
[2019-06-07] MEDS: IPRATROPIUM BROM 0.5 MG/2.5ML INH SOL NEB SCH ×6 (02:01→22:22)
[2019-06-07] MEDS: ALBUTEROL SULF 2.5 MG/0.5ML(0.5%) NEB SOLN NEB SCH ×6 (02:01→22:22)
[2019-06-07] MEDS ORDERED: NITROGLYCERIN 2% OINT 1GM PKG TD ONE (02:05)
--- NOTE | 2019-06-07 02:11 | NUR ---
LEFT GUARDADO IV NOTED TO HAVE A CREPE LIKE APPEARANCE ABOVE IV. IV REMOVED. NITRO PASTE APPLIED TO GENERAL AREA. LEG ELEVATED AND ICE PACK PLACED ON AREA.
--- NOTE | 2019-06-07 02:33 | NUR ---
hospitalist at bedside for central line placement
--- NOTE | 2019-06-07 02:45 | NUR ---
LEFT UPPER CHEST IV NOTED TO BE COOL TO TOUCH. IV DC'D. ICE PACK PLACED ON AREA.
[2019-06-07] MEDS: NOREPINEPHRINE 8 MG/250ML KIT 250 ML IV SCH ×4 (03:03→23:19)
--- NOTE | 2019-06-07 03:55 | NUR ---
ok to use central line per COMMUNITY HEALTH EDUCATION COORDINATOR Richardson
[2019-06-07 04:03] LABS: Hematocrit 39.9 % (41.0-53.0); Hemoglobin 13.2 g/dL (13.5-17.5); Mean Corpuscular Hemoglobin 31.6 pg (28.0-32.0); Mean Corpuscular Hgb Conc. 33.1 g/dL (32.0-36.0); Mean Corpuscular Volume 95.5 fL (80.0-100.0); Platelet Count (auto) 364 10^3/uL (140-450); Red Blood Cells 4.18 10^6/uL (4.5-5.90); Red Cell Distribution Width 15.9 % (11.8-14.3); White Blood Cell 27.1 10^3/uL (4.4-10.8)
[2019-06-07 04:13] LABS: Albumin 2.6 g/dL (3.4-5.0); BUN/Creatinine Ratio 43.8; Calcium 9.1 mg/dL (8.5-10.1); Potassium 3.5 mmol/L (3.5-5.1)
[2019-06-07 04:15] LABS: Basophils % (manual) 0 (0.0-2.0); Blast Cells 0; Eosinophils % (manual) 0 (0-7); Metamyelocytes % 0; Myelocytes % 0; Promyelocytes % 0; Reactive Lymphocytes 0
[2019-06-07 04:19] LABS: INR 1.06 (0.9-1.15); Partial Thromboplastin Time 27.9 sec (23.64-32.05)
[2019-06-07 04:22] LABS: Bilirubin, Total 0.5 mg/dL (0.2-1.0); Total Protein 6.6 g/dL (6.4-8.2)
[2019-06-07] MEDS: MEROPENEM 1GM IVPB 100 ML IV SCH ×3 (04:32→20:22)
--- NOTE | 2019-06-07 04:39 | NUR ---
IV REASSESSMENT NO CHANGED NOTED TO IV REMOVAL SITES. SKIN CONTINUES TO APPEAR WNL.
[2019-06-07] MEDS: VANCOMYCIN 1,500 MG in D5W 5% 250 ML IV SCH ×2 (06:21→17:41)
--- NOTE | 2019-06-07 06:25 | NUR ---
NITRO PASTE HELD AT THIS TIME D/T PT CONTINUING TO HAVE LOW BLOOD PRESSURE IN SPITE OF INCREASING PRESSORS. SKIN REMAINS INTACT, NO CHANGES NOTED.
[2019-06-07 06:31] LABS: Band Neutrophils % (manual) 5; Lymphocytes % (manual) 14 (10.0-50.0); Monocytes % (manual) 3 (0-12)
--- NOTE | 2019-06-07 07:19 | NUR ---
SHIFT OPENING NOTE REPORT RECEIVED FROM ELECTRICAL LINEMAN RN. PATIENT ON MECHANICAL VENTILATOR, SEDATED WITH VERSED AND FENTANYL FOR COMFORT. ON LEVOPHED FOR BLOOD PRESSURE SUPPORT. ABDOMEN SOFT, ROUND, AND NONTENDER. OGT CLAMPED AT THIS TIME. NGUYEN DRAINING YELLOW URINE, FREE OF KINKS AND BAG HUNG BELOW BLADDER. SKIN INTEGRITY SEE ASSESSMENT
[2019-06-07] MEDS: D5W/SOD CHL 0.45%/KCL 20MEQ 1,000 ML IV SCH ×2 (07:25→17:47)
[2019-06-07] MEDS: MIDAZOLAM DRIP 50 mg/50mL 50 ML IV SCH ×3 (07:25→23:19)
[2019-06-07] MEDS: NITROGLYCERIN 2% OINT 1GM PKG TD SCH ×3 (07:30→15:30)
--- NOTE | 2019-06-07 08:27 | NUR ---
NGUYEN CATHETER FLUSHED USING STERILE TECHNIQUE, NO OBSTRUCTION NOTED WITH STERILE WATER FLOWING FREELY BACK INTO NGUYEN BAG
--- NOTE | 2019-06-07 09:16 | NUR ---
SEDATION VACATION HELD AT THIS TIME Addendum: 06/07/19 at 0917 by Jose Askew RN Amended: Links added.
--- NOTE | 2019-06-07 09:48 | NUR ---
DR. MUÑOZ PAGED AWAITING CALLBACK
[2019-06-07] MEDS: ASPirin-EC 81 mg tab PO SCH (09:58)
[2019-06-07] MEDS: ENOXAPARIN SOD 30 MG/0.3 ML SYRINGE SC SCH (09:58)
[2019-06-07] MEDS: methylPREDNISolone SOD SUCC 125 MG/2 ML VL IV SCH ×2 (09:58→22:12)
[2019-06-07] MEDS: FAMOTIDINE 20 MG TAB PO SCH (09:59)
[2019-06-07] MEDS: FUROSEMIDE 20 MG TAB PO SCH (09:59)
[2019-06-07] MEDS: ALLOPURINOL 300 MG TAB PO SCH (09:59)
[2019-06-07] MEDS: LOSARTAN POTASSIUM 50 MG TAB PO SCH (10:00)
[2019-06-07] MEDS: DOPamine 1600MCG/ML D5W 250 ML IV SCH ×2 (10:08→21:55)
[2019-06-07] MEDS: PHENYLEPHRINE INJ 40 MG in SODIUM CHL 0.9% 250 ML IV SCH (10:10)
[2019-06-07] MEDS: PANTOPRAZOLE 40 MG/10 ML VIAL INJ IV SCH (10:46)
--- NOTE | 2019-06-07 10:50 | NUR ---
FAMILY AT BEDSIDE UPDATED ON PATIENT STATUS. ALL QUESTIONS AND CONCERNS ADDRESSED AT THIS TIME
--- NOTE | 2019-06-07 11:29 | NUR ---
DR. DUMONT AT BEDSIDE. HAD LENGTHY DISCUSSION WITH FAMILY REGARDING PATIENT STATUS AND PLAN OF CARE. ALL QUESTIONS AND CONCERNS ADDRESSED AT THIS TIME
--- NOTE | 2019-06-07 12:58 | NUR ---
DR. MUÑOZ AT BEDSIDE
--- NOTE | 2019-06-07 13:30 | NUR ---
PIT FURNACE OPERATOR PAGED AWAITING CALLBACK
[2019-06-07] MEDS ORDERED: Jevity 1.2 Cal/Fiber 1 Liter GT SCH (14:30)
--- NOTE | 2019-06-07 14:32 | NUR ---
MIDLINE REMOVED WITH ANGIOCATHETER INTACT. PRESSURE DRESSING APPLIED
--- NOTE | 2019-06-07 14:50 | NUR ---
SPUTUM SAMPLE COLLECTED AND SEND TO LAB FOR ANALYSIS
--- NOTE | 2019-06-07 15:28 | NUR ---
ECHO AT BEDSIDE
[2019-06-07] MEDS ORDERED: MORPHINE SULF INJ 2 MG/ML SYRINGE 1ML IV PRN (16:00)
[2019-06-07] MEDS: fentaNYL Drip 2500mCg/250mlNS 250 ML IV SCH ×2 (16:53→23:31)
--- NOTE | 2019-06-07 19:00 | NUR ---
OPENING NOTE ASSUMED CARE OF PATIENT AT THIS TIME. REPORT RECEIVED FROM DAY SHIFT RN. POC REVIEWED. HEAD TO TOE ASSESSMENT COMPLETE, SEE INTERVENTION SPREADSHEET FOR COMPLETE DETAILS. RECEIVED PT ON VENTILATOR, SEDATED AND LEVO AT 30 MCG. IV SITES BENIGN. TF RUNNING AT 30 MLS/HR <10 MLS RESIDUAL NOTED. RECEIVED PT WITH OGT, PATENT. VSS AT THIS TIME. BED LOCKED AND IN LOWEST POSITION, SAFETY PRECAUTIONS IN PLACE. WILL MONITOR PT CAREFULLY.
--- NOTE | 2019-06-07 20:05 | NUR ---
FAMILY UPDATE OF PT CORBY CALLED FOR UPDATE. PW PROVIDED. ALL QUESTIONS ADDRESSED AT THIS TIME.
--- NOTE | 2019-06-07 21:46 | NUR ---
TF INCREASED TO 40 MLS/HR AT THIS TIME.
--- NOTE | 2019-06-07 21:53 | NUR ---
SEDATION VACATION NOT APPROPRIATE AT THIS TIME. Addendum: 06/07/19 at 2154 by NEHEMIAS LANDON RN Amended: Links added.
[2019-06-08] VITALS (89 sets, daily range): BP systolic 81–143; BP diastolic 33–69
--- NOTE | 2019-06-08 00:23 | NUR ---
RESIDUALS NO RESIDUALS ASPIRATED, TF INCREASED TO GOAL RATE OF 50 MLS/HR.
[2019-06-08] MEDS: ALBUTEROL SULF 2.5 MG/0.5ML(0.5%) NEB SOLN NEB SCH ×6 (02:14→22:15)
[2019-06-08] MEDS: IPRATROPIUM BROM 0.5 MG/2.5ML INH SOL NEB SCH ×6 (02:14→22:15)
[2019-06-08] MEDS: PHENYLEPHRINE INJ 40 MG in SODIUM CHL 0.9% 250 ML IV SCH ×2 (02:50→08:28)
[2019-06-08] MEDS: NOREPINEPHRINE 8 MG/250ML KIT 250 ML IV SCH ×5 (03:09→21:50)
--- NOTE | 2019-06-08 04:25 | NUR ---
PT GIVEN CHG BATH DRAW SHEET AND CHUCKS CHANGED. MADIHA CARE PROVIDED. PT TOLERATED WELL. SUCTION TUBING AND CANISTERS CHANGED AT THIS TIME. SKIN INTEGRITY REMAINS UNCHANGED.
[2019-06-08] MEDS: MEROPENEM 1GM IVPB 100 ML IV SCH ×4 (04:27→19:51)
--- NOTE | 2019-06-08 04:29 | NUR ---
RESIDUALS NO RESIDUALS ASPIRATED. CONTINUE TF AT GOAL RATE OF 50 MLS/HR
[2019-06-08 04:33] LABS: Basophils # (auto) 0 uL; Basophils % (auto) 0.1 % (0.0-2.0); Eosinophils # (auto) 0 uL; Hemoglobin 13.1 g/dL (13.5-17.5); Lymphocytes # (auto) 0.9 uL; Lymphocytes % (auto) 4.6 % (10.0-50.0); Mean Corpuscular Hemoglobin 31.3 pg (28.0-32.0); Mean Corpuscular Hgb Conc. 32.7 g/dL (32.0-36.0); Mean Corpuscular Volume 95.8 fL (80.0-100.0); Monocytes % (auto) 4.8 % (0.0-12.0); Neutrophils # (auto) 18.2 uL; Neutrophils % (auto) 90.5 % (37.0-80.0); Platelet Count (auto) 319 10^3/uL (140-450); Red Blood Cells 4.17 10^6/uL (4.5-5.90); White Blood Cell 20.1 10^3/uL (4.4-10.8)
[2019-06-08 04:48] LABS: Potassium 4.1 mmol/L (3.5-5.1)
[2019-06-08 04:53] LABS: BUN/Creatinine Ratio 41.2; Calcium 8.9 mg/dL (8.5-10.1)
[2019-06-08 04:56] LABS: Bilirubin, Total 0.5 mg/dL (0.2-1.0); Total Protein 6.2 g/dL (6.4-8.2)
--- NOTE | 2019-06-08 05:02 | NUR ---
VANCO TROUGH 31.8. WILL HOLD 0600 DOSE.
[2019-06-08] MEDS: VANCOMYCIN 1,500 MG in D5W 5% 250 ML IV SCH (06:00)
--- NOTE | 2019-06-08 07:05 | NUR ---
Respiratory note: RECEIVED PATIENT ON V6 V200 VENT ORALLY INTUBATED WITH AN 8.0 ETT SECURED VIA OPAL AT THE 26CM MARKING AT THE LIP, AND MECHANICALLY VENTILATED WITH THE CHARTED SETTINGS. SPO2 95%, LUNG SOUNDS DMI T/O, NO SECRETIONS WHEN SUCTIONED. SKIN IS WARM/DRY TO THE TOUCH AND IS INTACT NEAR OPAL SITE. THERE IS AN OGT IN PLACE AND SECURED TO THE ETT, A TRIPLE LUMEN CENTRAL LINE IS PLACED IN THE RIGHT IJ AND IS PATENT. THERE IS PITTING EDEMA NOTED IN BILATERAL UPPER EXTREMITIES WELL IN THE LOWER EXTREMITIES. AM CXR ASSESSED AND IT SHOWS ETT IN SATISFACTORY POSITION SITTING APPROX 4.7CM ABOVE THE DESTINEY, NO INDICATION TO ADJUST TUBE. PATIENT IS UNRESPONSIVE TO BOTH VERBAL/TACTILE STIMULI AND IS SEDATED ON FENTANYL AND VERSED DRIPS. HE IS RESTING COMFORTABLY AND TOLERATING VENT WELL, NO CHANGES MADE. VENT PLUGGED INTO RED OUTLET AND ALL ALARMS ARE SET AND AUDIBLE. WILL CONTINUE TO ASSESS PATIENT WELL VENTILATOR FUNCTION. MED-NEB RUN INLINE, ABG DRAWN.
[2019-06-08] MEDS: D5W/SOD CHL 0.45%/KCL 20MEQ 1,000 ML IV SCH (07:23)
[2019-06-08] MEDS: MIDAZOLAM DRIP 50 mg/50mL 50 ML IV SCH ×3 (07:25→17:50)
--- NOTE | 2019-06-08 07:27 | NUR ---
SHIFT OPENING NOTE REPORT RECEIVED FROM J2EE APPLICATION DEVELOPER RN, PATIENT ON MECHANICAL VENTILATOR, PUPILS 2 EQUAL, ROUND AND REACTIVE TO LIGHT, POSITIVE COUGH AND GAG REFLEX. FENTANYL AND VERSED FOR COMFORT. LEVOPHED AT 22 MCG/MIN FOR BLOOD PRESSURE SUPPORT. ABDOMEN SOFT, NONTENDER, WITH ACTIVE BOWEL SOUNDS, JEVITY AT 50 CC/HR. NGUYEN DRAINING CLEAR, YELLOW URINE WITH BAG FREE OF KINKS AND HUNG BELOW BLADDER, SCD'S BILATERALLY, SKIN INTEGRITY SEE ASSESSMENT
--- NOTE | 2019-06-08 08:10 | NUR ---
PATIENT TURNED AND SKIN ASSESSED PATIENT DID NOT TOLERATE WELL. BLOOD PRESSURE DROPPED INTO THE 60'S SYSTOLIC. VASOPRESSORS INCREASED FOR BLOOD PRESSURE SUPPORT
[2019-06-08] MEDS: PANTOPRAZOLE 40 MG/10 ML VIAL INJ IV SCH (09:38)
[2019-06-08] MEDS: ENOXAPARIN SOD 30 MG/0.3 ML SYRINGE SC SCH (09:40)
[2019-06-08] MEDS: DOPamine 1600MCG/ML D5W 250 ML IV SCH ×2 (09:42→21:29)
[2019-06-08] MEDS: FAMOTIDINE 20 MG TAB PO SCH (09:48)
[2019-06-08] MEDS: ALLOPURINOL 300 MG TAB PO SCH (09:48)
[2019-06-08] MEDS: ASPirin-EC 81 mg tab PO SCH (09:48)
[2019-06-08] MEDS: methylPREDNISolone SOD SUCC 125 MG/2 ML VL IV SCH ×2 (09:49→21:49)
[2019-06-08] MEDS: LOSARTAN POTASSIUM 50 MG TAB PO SCH (09:49)
[2019-06-08] MEDS: FUROSEMIDE 20 MG TAB PO SCH (10:00)
--- NOTE | 2019-06-08 10:04 | NUR ---
FAMILY AT BEDSIDE. UPDATED ON PATIENT STATUS. ALL QUESTIONS AND CONCERNS ADDRESSED AT THIS TIME
--- NOTE | 2019-06-08 12:37 | NUR ---
DR. HUGHES AT BEDSIDE
[2019-06-08] MEDS ORDERED: FLUCONAZOLE 200MG/100ML 100 ML IV ONE (12:45)
[2019-06-08] MEDS: ACETYLCYSTEINE 10 %(100MG/ML) SOL 4ML NEB SCH ×3 (14:20→22:16)
[2019-06-08] MEDS: SOD CHL 0.9%/ KCL 20MEQ 1,000 ML IV SCH (15:38)
--- NOTE | 2019-06-08 16:16 | NUR ---
DR. MUÑOZ AT BEDSIDE
--- NOTE | 2019-06-08 17:42 | NUR ---
VANCOMYCIN HELD AT THIS TIME DUE TO LAB VALUE
[2019-06-09] VITALS (103 sets, daily range): BP systolic 83–124; BP diastolic 39–66
[2019-06-09] MEDS: IPRATROPIUM BROM 0.5 MG/2.5ML INH SOL NEB SCH ×6 (02:31→22:17)
[2019-06-09] MEDS: ACETYLCYSTEINE 10 %(100MG/ML) SOL 4ML NEB SCH ×6 (02:31→22:17)
[2019-06-09] MEDS: ALBUTEROL SULF 2.5 MG/0.5ML(0.5%) NEB SOLN NEB SCH ×6 (02:31→22:17)
[2019-06-09] MEDS: SOD CHL 0.9%/ KCL 20MEQ 1,000 ML IV SCH (04:00)
[2019-06-09] MEDS: MEROPENEM 1GM IVPB 100 ML IV SCH ×3 (04:00→19:53)
[2019-06-09] MEDS: NOREPINEPHRINE 8 MG/250ML KIT 250 ML IV SCH (04:00)
[2019-06-09 04:56] LABS: Basophils # (auto) 0 uL; Basophils % (auto) 0.1 % (0.0-2.0); Eosinophils # (auto) 0 uL; Hematocrit 39.5 % (41.0-53.0); Hemoglobin 13.1 g/dL (13.5-17.5); Lymphocytes # (auto) 0.8 uL; Lymphocytes % (auto) 3.2 % (10.0-50.0); Mean Corpuscular Hemoglobin 31.9 pg (28.0-32.0); Mean Corpuscular Hgb Conc. 33.2 g/dL (32.0-36.0); Mean Corpuscular Volume 96.2 fL (80.0-100.0); Monocytes # (auto) 1.1 uL; Monocytes % (auto) 4.6 % (0.0-12.0); Neutrophils # (auto) 22.2 uL; Neutrophils % (auto) 92.1 % (37.0-80.0); Platelet Count (auto) 286 10^3/uL (140-450); Red Cell Distribution Width 16.2 % (11.8-14.3); White Blood Cell 24.1 10^3/uL (4.4-10.8)
[2019-06-09] MEDS: fentaNYL Drip 2500mCg/250mlNS 250 ML IV SCH ×2 (05:00→16:53)
[2019-06-09 05:32] LABS: Albumin 2.1 g/dL (3.4-5.0); BUN/Creatinine Ratio 49.2; Calcium 8.3 mg/dL (8.5-10.1); Potassium 4.6 mmol/L (3.5-5.1)
[2019-06-09 05:34] LABS: Bilirubin, Total 0.3 mg/dL (0.2-1.0); Total Protein 5.8 g/dL (6.4-8.2)
--- NOTE | 2019-06-09 08:00 | NUR ---
SBAR REPORT RECEIVED FROM [facility] SHIFT RN FAYE. AM ASSESSMENT PERFORMED AT THIS TIME. SEE FLOW SHEET FOR MORE DETAILS. VSS. TUBE FEEDINGS TURNED OFF AT THIS TIME FOR POSSIBLE CPAP LATER TODAY (IF MD REQUESTS TO DO CPAP). AT THIS TIME, PT IS EASILY ARROUSABLE WHEN TOUCHED, OTHERWISE PT IS ASLEEP AND CALM.
--- NOTE | 2019-06-09 08:27 | NUR ---
Assessment Pt is a 68 yr old intubated male. BILL called pt's , Estela, at [phone] to answer questions. Prior to admit, pt was living with his at home and had a caregiver come in the morning and evening to assist with ADLs such at bathing, transferring, and eating. Pt uses a w/c, efren lift and sling, hospital bed, commode/bed link to complete his ADL's. Pt's has home health with [facility] and caregiving services through home care. Pt receives [employer] income and pension. BILL educated pt's on the aid and attendance program. Resumption order of HH will be needed upon d/c and possible other medical equipment such as in-home 02 and suctioning supplies. Further needs will be assessed closer to d/c. Addendum: 06/09/19 at 0835 by KATRIN STANLEY Amended: Links added.
[2019-06-09] MEDS: DOPamine 1600MCG/ML D5W 250 ML IV SCH ×2 (09:16→21:03)
--- NOTE | 2019-06-09 09:25 | NUR ---
MD HUGHES ON PHONE. UPDATED MD WITH PT OVERALL STATUS. NEW ORDERS RECEIVED AND IMPLEMENTED.PT TO HAVE CPAP TRIAL LATER TODAY WHEN PT IS MORE AWAKE. SEDATION OFF AT THIS TIME (PAIN MEDICATION SLOWLY BEING WEANED OFF PER MD ORDERS), PT IS ARROUSABLE HOWEVER LETHARGY IS STILL PRESENT. PT DOES NOT FOLLOW SIMPLE COMMANDS AT THIS TIME, VSS. TUBE FEEDS OFF EARLY THIS AM.
[2019-06-09] MEDS: ENOXAPARIN SOD 30 MG/0.3 ML SYRINGE SC SCH (09:58)
[2019-06-09] MEDS: FAMOTIDINE 20 MG TAB PO SCH (09:58)
[2019-06-09] MEDS: FUROSEMIDE 20 MG TAB PO SCH (09:58)
[2019-06-09] MEDS: FLUCONAZOLE 200MG/100ML 100 ML IV SCH (09:59)
[2019-06-09] MEDS: PANTOPRAZOLE 40 MG/10 ML VIAL INJ IV SCH (09:59)
[2019-06-09] MEDS: LOSARTAN POTASSIUM 50 MG TAB PO SCH (09:59)
[2019-06-09] MEDS: methylPREDNISolone SOD SUCC 125 MG/2 ML VL IV SCH ×2 (09:59→21:59)
[2019-06-09] MEDS: ASPirin-EC 81 mg tab PO SCH (09:59)
[2019-06-09] MEDS: ALLOPURINOL 300 MG TAB PO SCH (10:49)
--- NOTE | 2019-06-09 11:45 | NUR ---
pt's family at bedside. updated family members (pt's [id number]) on pt's overall condition and POC. NO FURTHER QUESTIONS AT THIS TIME. FAMILY EXPRESSES THAT PT'S IS AT [place] CURRENTLY FOR AN OUT-PATIENT PROCEDURE. VSS.
[2019-06-09] MEDS: PHENYLEPHRINE INJ 40 MG in SODIUM CHL 0.9% 250 ML IV SCH (11:54)
--- NOTE | 2019-06-09 12:00 | NUR ---
WOUND RN AT BEDSIDE ASSESSING PT. ASSISTED WOUND RN MATY WITH PT. OPTIFOAM IN PLACE (SACRAL AREA), PT HAS BLANCHABLE SKIN. MILD PINKNESS NOTED BUT OTHERWISE SITE IS NORMAL AT THIS TIME. PT TOLERATED ACTIVITY WELL WITH 0 COMPLICATIONS NOTED, VSS.
--- NOTE | 2019-06-09 12:11 | NUR ---
PT STARTING TO WAKE UP MORE. PT DOES NOT FOLLOW SIMPLE COMMANDS AT THIS TIME. WILL CONTINUE TO MONITOR. VSS.
--- NOTE | 2019-06-09 12:34 | NUR ---
MD HUGHES AT BEDSIDE. UPDATED MD ON PT OVERALL STATUS. NO NEW ORDERS AT THIS TIME. PT'S AT BEDSIDE. UPDATED PT'S FAMILY WITH POC. NO FURTHER QUESTIONS AT THIS TIME, VSS. PT STILL IN THE PROCESS OF WAKING UP, NOT FOLLOWING COMMANDS AT THIS TIME.
--- NOTE | 2019-06-09 12:38 | NUR ---
Nutrition Follow-up Notes Wt.: 115.5 kg Pt`s intubated on CPAP trial when rounded this am. pt continues to be NPO. pt was on EN support with Jevity 1.2 @ 50 ml./hr providing 1440 kcals and 65 gm proteins Est. Needs ABW [id number] kcal (23-25 kcal/kgBW), 80-100 gms pro (0.8-1.0 gms/kgBW). Will continue to monitor pertinent labs and reassess nutrient need prn Labs: ALB 2.1 L, GLU 146 H, BUN 32 H, CA 8.3 L. Skin: Rogelio scale 14, mod risk, pt's with blanchable redness sacrum per cesspool cleaner. GI: Pt has no BM reported per cesspool cleaner. PES: Decreased nutrient needs r/t adiposity aeb pt`s high BMI of 31.1 kgm2 Altered nutrition related lab values r/t current/chronic medical condition aeb elev BUN hyperglycemia, mod hypoalb Will continue to monitor NPO status, skin status, pertinent labs and weight trend. F/u in 2-3 days. Rec.: 1.) Advance diet as medically feasible. 2) refer to [facility] dietitian on DC. 3) continue current plan of care
--- NOTE | 2019-06-09 12:45 | NUR ---
WOUND CARE NOTE: IN TO SEE PATIENT AT THIS TIME FOR SKIN INTEGRITY. PATIENT WAS ADMITTED TO [facility] WITH DIAGNOSIS OF ACUTE RESPIRATORY FAILURE. PATIENT HAS CURRENT MACEY SCORE OF 10. HE IS INTUBATED, SEDATED. WOUND PHOTOS TAKEN AT TIME OF ADMIT BY BEDSIDE NURSE. PATIENT TURNED TO VISUALIZE SACRUM AND OTHER BONY PROMINENCES. PATIENT HAS BLANCHABLE LIGHT RED SACRUM, ALL OTHER BONY PROMINENCES REMAIN WOUND FREE AT THIS TIME. PATIENT WOULD BENEFIT FROM THE FOLLOWING: FREQUENT TURN SCHEDULE Q 2 HOURS, PRN CONDITION PERMITS, WITH PRESSURE REDISTRIBUTION USING PILLOWS/WEDGES, SKIN/WOUND CARE PLAN, BID/PRN APPLICATION WITH MOISTURE BARRIER CREAM, OPTIFOAM GENTLE SACRAL DRESSING PREVENTATIVE, DIETARY CONSULT FOR LOW MACEY, CONTINUED MONITORING BY WOUND CARE TEAM. Addendum: 06/09/19 at 1619 by Aida Benavidez RN Amended: Links added.
--- NOTE | 2019-06-09 14:35 | NUR ---
CHECKED ON PT'S AWARENESS. PT STILL LETHARGIC BUT IS TRYING TO WAKE UP. PT NOT CONSISTENTLY FOLLOWING COMMANDS AT THIS TIME. WILL CONTINUE TO MONITOR. VSS.
--- NOTE | 2019-06-09 15:00 | NUR ---
Respiratory note:PATIENT IS MORE AWAKE AND ABLE TO FOLLOW COMMANDS CONSISTENTLY. PLACED PT ON CPAP AT THIS TIME PER MD ORDERS. PATIENT TOLERATED CPAP MODE FOR APPROXIMATELY 5 MINUTES. PATIENT APPEARED TO BE STRUGGLING ON CPAP MODE ABDOMINAL MUSCLES, RESPIRATION RATE INCREASED TO >30. PLACED PT BACK ON PREVIOUS VENT SETTINGS AND WILL TRY AGAIN LATER WHEN PT IS MORE AWAKE.
--- NOTE | 2019-06-09 15:00 | NUR ---
PT IS MORE AWAKE AND ABLE TO FOLLOW COMMANDS CONSISTENTLY.PLACED PT ON CPAP AT THIS TIME PER MD ORDERS. PT TOLERATED CPAP MODE FOR APPROXIMATELY 5 MINUTES. PT APPEARED TO BE STRUGGLING ON CPAP MODE (ABDOMINAL MUSCLES, RESPIRATION RATE INCREASED TO >30). PLACED PT BACK ON PREVIOUS VENT SETTINGS AND WILL TRY AGAIN LATER WHEN PT IS MORE AWAKE. VSS. ONCE PT WAS PLACED ON PREVIOUS VENT SETTINGS, PT WAS NOTED TO RELAX WITH RESPIRATIONS BACK WITHIN NORMAL RANGE. O2 SATURATION NEVER DROPPED SIGNIFICANTLY.
--- NOTE | 2019-06-09 16:15 | NUR ---
Respiratory note: UNABLE TO DO CPAP TRIAL AT THIS TIME, DUE TO PATIENT BEING UNABLE TO FOLLOW COMMANDS AT THIS TIME. PATIENT SEEMS DROWSY AND LETHARGIC. RN EDITH Aguilar WAS AT BEDSIDE ALONG TO ASSESS PATIENT. WILL TRY AGAIN AT A LATER TIME.
--- NOTE | 2019-06-09 16:23 | NUR ---
ATTEMPTED TO PLACE PT ON CPAP MODE BUT UNABLE TO DUE TO PT NOT FOLLOWING COMMANDS (PT APPEARS MORE LETHARGIC THAN PREVIOUS TIME EVEN THOUGH SEDATION WAS COMPLETELY OFF?) AND LETHARGY. UPDATED MD HUGHES ON PT STATUS. IS AWARE AND STATES TO KEEP PT ON LOW SEDATION FOR POSSIBLE CPAP TOMORROW AM. NEW ORDERS RECEIVED AND IMPLEMENTED. VSS.
[2019-06-09] MEDS ORDERED: MIDAZOLAM HCL 1MG/1ML-2 ML VIAL IV PRN (16:30)
--- NOTE | 2019-06-09 18:16 | NUR ---
PT TOLERATING LOW SEDATION AT THIS TIME. PT ASLEEP BUT IS EASILY ARROUSABLE WHEN INTRODUCED TO PAINFUL STIMULI. STARTED TUBE FEEDS AT LOW DOSE PER MD ORDERS. VSS.
--- NOTE | 2019-06-09 20:00 | NUR ---
WAS OUT ON TELEMETRY ON THE . BRONCH DONE. ON THE May PATIENT WAS INTUBATED AND BROUGHT HERE. PATIENT IS VERY SLEEPY. PUPILS 2 AND BRISK. DOES NOT BLINK OR TRY TO OPEN HIS EYES. ORALLY INTUBATED. ORAL NGT WITH JEVITY AT 15CC/HR. CHECKED NGT PLACEMENT. NO RESIDUAL, EASY FLOW OF LAVAGE. INCREASED THE TUBE FEEDING TO 20CC/HR. NO ORAL SECRETIONS. ETT SECRETIONS MINIMAL. LUNGS CLEAR. LLL COARSENESS. BILATERALLY DIMINISHED IN BASES. ABDOMEN SOFT. NO BM. NGUYEN IN PLACE . CLEAR YELLOW LIQUID TO DOWN DRAIN BAG. ALL PULSES PALPABLE. 2+ PITTING EDEMA IN ARMS AND LEGS. DRY SKIN. VERY SCALY BOTTOM OF BOTH FEET. NO WITHDRAWAL TO PAINFUL STIMULI. REPOSITIONED TO LEFT SIDE. LEVOPHED AND FENTANYL ARE THE DRIPS. TKO IV. PLAN: CPAP TOMORROW. FAILED CPAP TODAY WITH A HIGH RR IN A SHORT PERIOD OF TIME. HAS A RIJTLC . DRESSING IS CLEAN AND DRY. ON ANTIBIOTICS. WBC 24.1. NO FEVER.
--- NOTE | 2019-06-09 22:00 | NUR ---
NO VENTILATOR CHANGES. LUNGS CLEAR. NOTHING SUCTIONED FROM ETT. CLOUDY ORAL SECRETIONS. LUNGS CLEAR. ABDOMEN SOFT. NO NGT RESIDUAL. GENERALIZED EDEMA. NSR WITH OCCASIONAL PVCS.
[2019-06-10] VITALS (88 sets, daily range): BP systolic 12–142; BP diastolic 39–107
--- NOTE | 2019-06-10 | NUR ---
WOKE UP, MOVING HIS HEAD ONLY. NOT OPENING HIS EYES. PUPILS UNCHANGED. LUNGS CLEAR.ABDOMEN SOFT. GENERALIZED EDEMA. ALL EXTREMITIES WARM. APPLIED BLANKETS FOR A TEMP OF 97.6. TUBE FEED STOPPED FOR CPAP TRIAL TOMORROW. NO NGT RESIDUAL. NO BM. URINE OUTPUT ADEQUATE PER NGUYEN. RIJ TLC DRESSING DRY AND SECURE. NO REDNESS AT SITE.
--- NOTE | 2019-06-10 02:00 | NUR ---
VSS. LUNGS COARSE. NOTHING SUCTIONED FROM THE ETT. ORAL: LARGE AMOUNT OF CLOUDY SECRETIONS. OPENS EYES, LOOKS AROUND. HYPOACTIVE COUGH.
[2019-06-10] MEDS: ALBUTEROL SULF 2.5 MG/0.5ML(0.5%) NEB SOLN NEB SCH ×6 (02:10→21:49)
[2019-06-10] MEDS: IPRATROPIUM BROM 0.5 MG/2.5ML INH SOL NEB SCH ×6 (02:10→21:49)
[2019-06-10] MEDS: ACETYLCYSTEINE 10 %(100MG/ML) SOL 4ML NEB SCH ×6 (02:10→21:51)
--- NOTE | 2019-06-10 03:26 | NUR ---
AM LABS DRAWN
[2019-06-10] MEDS: NOREPINEPHRINE 8 MG/250ML KIT 250 ML IV SCH (03:34)
[2019-06-10] MEDS: MEROPENEM 1GM IVPB 100 ML IV SCH ×3 (04:00→19:41)
--- NOTE | 2019-06-10 04:00 | NUR ---
SMALL AIR LEAK. ORAL CARE: LARGE AMOUNT OF CLOUDY SECRETIONS. NOTHING SUCTIONED FROM THE ETT. LUNGS CLEAR. DECREASING THE LEVOPHED. ABDOMEN ROUND AND SOFT. NGUYEN IN PLACE, DRAINING YELLOW LIQUID TO DOWN DRAIN BAG. GENERALIZED PITTING EDEMA. NO CHANGE IN VITAL SIGNS.
[2019-06-10 04:06] LABS: Basophils # (auto) 0 uL; Basophils % (auto) 0.1 % (0.0-2.0); Eosinophils # (auto) 0 uL; Hematocrit 39.4 % (41.0-53.0); Hemoglobin 12.9 g/dL (13.5-17.5); Lymphocytes # (auto) 0.8 uL; Lymphocytes % (auto) 6.2 % (10.0-50.0); Mean Corpuscular Hemoglobin 31.3 pg (28.0-32.0); Mean Corpuscular Hgb Conc. 32.6 g/dL (32.0-36.0); Mean Corpuscular Volume 95.9 fL (80.0-100.0); Monocytes # (auto) 0.5 uL; Monocytes % (auto) 3.9 % (0.0-12.0); Neutrophils # (auto) 11.9 uL; Neutrophils % (auto) 89.8 % (37.0-80.0); Nucleated Red Blood Cells % 0.1 %; Platelet Count (auto) 283 10^3/uL (140-450); Red Blood Cells 4.11 10^6/uL (4.5-5.90); White Blood Cell 13.2 10^3/uL (4.4-10.8)
[2019-06-10 04:22] LABS: BUN/Creatinine Ratio 51.9; Calcium 8.6 mg/dL (8.5-10.1); Potassium 3.8 mmol/L (3.5-5.1)
[2019-06-10] MEDS: PHENYLEPHRINE INJ 40 MG in SODIUM CHL 0.9% 250 ML IV SCH (04:50)
--- NOTE | 2019-06-10 05:00 | NUR ---
[facility] BATH
--- NOTE | 2019-06-10 06:00 | NUR ---
FENTANYL 50, LEVO 10MCG. UNABLE TO WEAN FURTHER. RR 12
[2019-06-10] MEDS: DOPamine 1600MCG/ML D5W 250 ML IV SCH (07:48)
[2019-06-10] MEDS: LOSARTAN POTASSIUM 50 MG TAB PO SCH (10:00)
[2019-06-10] MEDS: ASPirin-EC 81 mg tab PO SCH (10:00)
--- NOTE | 2019-06-10 10:35 | NUR ---
FAMILY: Patient's Estela at bedside, updated on patient condition. Discussed with her plan for today to include weaning trail once the patient is awake enough to follow commands, informed her that at this time while the patient will open his eyes he is not tracking or following commands. Also discussed with Estela that the patient is currently only breathing the set rate of 10 when he follows asleep. Estela verbalized understanding.
[2019-06-10] MEDS: FLUCONAZOLE 200MG/100ML 100 ML IV SCH (10:45)
[2019-06-10] MEDS: methylPREDNISolone SOD SUCC 125 MG/2 ML VL IV SCH ×2 (10:46→22:14)
[2019-06-10] MEDS: ENOXAPARIN SOD 30 MG/0.3 ML SYRINGE SC SCH (10:47)
[2019-06-10] MEDS: FAMOTIDINE 20 MG TAB PO SCH (10:47)
[2019-06-10] MEDS: FUROSEMIDE 20 MG TAB PO SCH (10:47)
[2019-06-10] MEDS: PANTOPRAZOLE 40 MG/10 ML VIAL INJ IV SCH (10:49)
[2019-06-10] MEDS: ALLOPURINOL 300 MG TAB PO SCH (10:49)
--- NOTE | 2019-06-10 11:13 | NUR ---
AT BEDSIDE; Dr. Ren at bedside, informed her that the patient is opening his eyes spontaneously and mouthing "help me" but is not tracking and not following commands and rides the ventilator. Dr. Ren spoke with patient's regarding his muscular dystrophy, informing her that this diagnosis could potentially make it difficult to wean the patient. Dr. Ren states to go forward with CPAP and place patient on and see how he tolerates. RT will be notified.
--- NOTE | 2019-06-10 12:05 | NUR ---
RT COLLABORATION; Spoke with Camelia PAUL, discussed with him conversation during rounds with Dr. Ren. Informed Camelia that Dr. Ren wants to try CPAP at this time with the patient's current mentation.
--- NOTE | 2019-06-10 12:10 | NUR ---
Respiratory note: PT PLACED ON CPAP PER DR. HUGHES WITH A PS OF 8, PEEP OF 5, AND 35% FIO2. NO SOB NOTED. PT IS TOLERATING CPAP WELL. ABG TO BE DRAWN IN ONE HOUR. POX 96%.
--- NOTE | 2019-06-10 13:03 | NUR ---
UPDATED: Read back ABG results to , informed her that unable to obtain weaning parameters as patient continues to be groggy, unable to follow commands not tracking. States to leave off of sedation, low dose Fentanyl ok, place back on AC and attempt CPAP in am.
--- NOTE | 2019-06-10 13:40 | NUR ---
Respiratory note: PT HAS BEEN PLACED BACK ONTO AC MODE PER DR. HUGHES ON PREVIOUSLY ORDERED SETTINGS: AC RR 10, VT 600, PEEP 5, AND 35% FIO2.
[2019-06-10] MEDS: fentaNYL Drip 2500mCg/250mlNS 250 ML IV SCH (19:31)
--- NOTE | 2019-06-10 19:50 | NUR ---
ADMITTED WITH RESPIRATORY FAILURE. INTUBATED ON 06/06/2019. CPAP TRIAL TODAY FAILED DUE TO HIS INABILITY TO WAKE UP. FENTANYL 25 MCG. WENT IN ROOM AND HE WAS ACTIVELY MOVING. INCREASED FENTANYL TO 50 MCG. NO CHANGE IN VENTILATOR SETTINGS. OVERBREATHING THE VENTILATOR AC 10 BY 9 BREATHS. LUNGS CLEAR. ABDOMEN SOFT. SWITCHED OUT NGUYEN BAG. SACRAL REDNESS, COVERED WITH OPTIFOAM. ON LEVOPHED. SBP 124 . TITRATING LEVOPHED. ON JEVITY AT 25CC/HR. NGT RESIDUAL 2CC. NO BM. NGUYEN: CLEAR YELLOW LIQUID TO DOWN DRAIN BAG. 2+ GENERALIZED EDEMA. ALL PULSES PALPABLE. ALL EXTREMITIES ARE WARM. SCALY FEET BILATERALLY. NSR WITH OCCASIONAL PVCS.
--- NOTE | 2019-06-10 22:00 | NUR ---
REPOSITIONED. LEVOPHED 3MCG. FENTANYL 50 MCG IS KEEPING HIM MODERATELY AWAKE. NOTHING SUCTIONED FROM THE ETT. ORAL CARE DONE. ABDOMEN SOFT. DOING FOOT CARE. LOTS OF EXTRA SCALY SKIN. CHRISTIAN. MITTENS ON.
--- NOTE | 2019-06-10 23:11 | NUR ---
DR LUCERO CALLED BACK. INFORMED OF THE PAST 2 H&H AND THE TIMES FOR THE FUTURE H&H. HE STATED CALL ME IF IT DROPS FURTHER.
[2019-06-11] VITALS (55 sets, daily range): BP systolic 86–142; BP diastolic 40–81
--- NOTE | 2019-06-11 | NUR ---
REPOSITIONED. ORAL CARE. LUNGS CLEAR. NO NGT RESIDUAL. TITRATING DOWN THE LEVOPHED. FENTANYL STABLE AT 50 MCG. NSR WITHOUT ECTOPY.
[2019-06-11] MEDS: ACETYLCYSTEINE 10 %(100MG/ML) SOL 4ML NEB SCH ×6 (01:57→22:17)
[2019-06-11] MEDS: ALBUTEROL SULF 2.5 MG/0.5ML(0.5%) NEB SOLN NEB SCH ×6 (01:57→22:17)
[2019-06-11] MEDS: IPRATROPIUM BROM 0.5 MG/2.5ML INH SOL NEB SCH ×6 (01:57→22:17)
--- NOTE | 2019-06-11 01:57 | NUR ---
Respiratory note: TITRATED FIO2 TO 30%
--- NOTE | 2019-06-11 02:00 | NUR ---
VSS . LEVOPHED AT 1 MCG, SBP DROPPED TO 80 SYSTOLIC. INCREASED THE LEVOPHED TO 3. SYSTOLIC RETURNED TO 96. REPOSITIONED. ORAL CARE.
--- NOTE | 2019-06-11 03:54 | NUR ---
CHG BATH COMPLETED. FULL LINEN CHANGE.
--- NOTE | 2019-06-11 04:00 | NUR ---
PATIENT IS AWAKE WHEN YOU WORK WITH HIM. GOES TO SLEEP EASILY WHEN LEFT ALONG. NSR WITH LESS PVCS TONIGHT. LUNGS CLEAR. NOT SUCTIONING ANY ETT SECRETIONS ALL NIGHT. TUBE FEED HAS BEEN OFF SINCE MIDNIGHT FOR CPAP TRIAL TODAY. GENERALIZED 2 + PITTING EDEMA. NGUYEN DRAINING CLEAR YELLOW LIQUID TO DOWN DRAIN BAG. ORAL CARE.
[2019-06-11 04:14] LABS: BUN/Creatinine Ratio 62.7; Calcium 8.5 mg/dL (8.5-10.1); Potassium 3.4 mmol/L (3.5-5.1)
[2019-06-11 04:24] LABS: Hematocrit 35.3 % (41.0-53.0); Hemoglobin 11.9 g/dL (13.5-17.5); Mean Corpuscular Hemoglobin 32.2 pg (28.0-32.0); Mean Corpuscular Hgb Conc. 33.8 g/dL (32.0-36.0); Mean Corpuscular Volume 95.3 fL (80.0-100.0); Platelet Count (auto) 202 10^3/uL (140-450); Red Cell Distribution Width 16.4 % (11.8-14.3); White Blood Cell 7.6 10^3/uL (4.4-10.8)
[2019-06-11] MEDS: MEROPENEM 1GM IVPB 100 ML IV SCH ×3 (04:24→22:42)
[2019-06-11 04:29] LABS: Basophils % (manual) 0 (0.0-2.0); Blast Cells 0; Eosinophils % (manual) 0 (0-7); Metamyelocytes % 0; Myelocytes % 0; Promyelocytes % 0; Reactive Lymphocytes 0
--- NOTE | 2019-06-11 05:26 | NUR ---
AM CXR COMPLETED
[2019-06-11 05:38] LABS: Band Neutrophils % (manual) 1; Lymphocytes % (manual) 15 (10.0-50.0); Monocytes % (manual) 4 (0-12)
--- NOTE | 2019-06-11 08:29 | NUR ---
Dr. Barry at bedside.
--- NOTE | 2019-06-11 08:55 | NUR ---
Respiratory note: PT PLACED ON CPAP TRIAL. SPO2 95% ON 30% FIO2, HR 101, RR 25, BS CLEAR T/O. WILL DRAW BLOOD GAS IN ON HOUR.
--- NOTE | 2019-06-11 08:55 | NUR ---
YOLA Calhoun at bedside.
--- NOTE | 2019-06-11 09:00 | NUR ---
RT at bedside.
--- NOTE | 2019-06-11 09:05 | NUR ---
Fentanyl dtt stopped for CPAP trial.
[2019-06-11] MEDS ORDERED: POTASSIUM CHL 20MEQ/100ML 100 ML IV SCH (09:15)
--- NOTE | 2019-06-11 10:00 | NUR ---
Respiratory note: PT FAILED CPAP TRIAL DUE TO NOT BEING AWAKE ENOUGH. PT CANNOT MAINTAIN VT, THEREBY CAUSING SATS TO DECREASE. SECOND ATTEMPT TO CPAP PT WILL BE DONE LATER TODAY. Addendum: 06/11/19 at 1037 by RT GERTRUDIS RT RN MADE AWARE.
[2019-06-11] MEDS: FLUCONAZOLE 200MG/100ML 100 ML IV SCH (10:21)
[2019-06-11] MEDS: methylPREDNISolone SOD SUCC 125 MG/2 ML VL IV SCH ×2 (10:21→22:44)
[2019-06-11] MEDS: FUROSEMIDE 20 MG TAB PO SCH (10:22)
[2019-06-11] MEDS: ENOXAPARIN SOD 30 MG/0.3 ML SYRINGE SC SCH (10:22)
[2019-06-11] MEDS: ALLOPURINOL 300 MG TAB PO SCH (10:22)
[2019-06-11] MEDS: FAMOTIDINE 20 MG TAB PO SCH (10:22)
[2019-06-11] MEDS: ASPirin-EC 81 mg tab PO SCH (10:22)
[2019-06-11] MEDS: LOSARTAN POTASSIUM 50 MG TAB PO SCH (10:22)
[2019-06-11] MEDS: PANTOPRAZOLE 40 MG/10 ML VIAL INJ IV SCH (10:39)
--- NOTE | 2019-06-11 11:01 | NUR ---
Family member at bedside.
--- NOTE | 2019-06-11 11:11 | NUR ---
Dr. Yen at bedside discussing POC with the patients family member.
--- NOTE | 2019-06-11 11:51 | NUR ---
Dr. Ren at bedside.
[2019-06-11] MEDS ORDERED: SOD CHL 0.9%/ KCL 20MEQ 1,000 ML IV SCH (12:00)
--- NOTE | 2019-06-11 12:09 | NUR ---
Nutrition Consult and Follow-up Notes Wt.: 121.5 kg today. Pt's intubated, non-sedated, currently NPO, off from EN support for CPAP trial today, per nursing. pt's previously on EN support with order for Jevity 1.2 Marlon @ 50 ml/hr providing 1440 kcal, 65 gms proteins and 968 ml free water. Noted pt's for active Neurology consult. Est. Needs ABW [id number] kcal (23-25 kcal/kgBW), 80-100 gms pro (0.8-1.0 gms/kgBW). Will continue to monitor pertinent labs and reassess nutrient need prn Labs: Gluc 123 H, K 3.4 L, BUN 32 L, Cr 0.51 L, Creatine kinase 30 L, Tpro 5.8 L, Alb 2.1 L Skin: Rogelio scale 15, mod risk, pt's with blanchable redness sacrum per watershed tender. Pls refer to latest election supervisor's notes for further details re: tx plans. GI: Pt had 1 BM 06/06/19 per watershed tender. PES: Increased nutrient needs r/t acute/chronic medical condition aeb intubated, sedated, severe hypoalbuminemia, NPO. Altered nutrition related lab values r/t current/chronic medical condition aeb elev BUN hyperglycemia, mod hypoalb Decreased nutrient needs r/t adiposity aeb pt`s high BMI of 31.1 kgm2 Will continue to monitor NPO status, skin status, pertinent labs and weight trend. F/u in 2 to 3 days. Rec.: 1.) Advance gradually to oral diet when medically feasible. 2.) If still NPO, consider to resume EN support of Jevity 1.2 Marlon @ 75 ml/hr goal rate as tolerated if medically appropriate. 3.) If Albumin continues trending down, consider Prostat 1 pkt BID. 4.) Consider daily MVI with minerals and Asc acid 500 mgs BID. 5.) Consider close supervision and feeding assistance prn during meals. 6.) Refer to RD for further nutrition educ. and weight monitoring upon discharge. 7.) Continue current plan of care. Thank you for this consult.
--- NOTE | 2019-06-11 12:55 | NUR ---
Respiratory note: PT PLACED ON T-PIECE TRIAL PER DR HUGHES ORDER. SPO2 96% ON 40%FIO2 VIA T-PIECE. HR 98, RR 17, BS CLEAR T/O. PT TOLERATING TRIAL WELL. WILL CONTINUE TO MONITOR PT.
--- NOTE | 2019-06-11 15:00 | NUR ---
Dr. Ren at bedside.
--- NOTE | 2019-06-11 15:30 | NUR ---
Respiratory note: PT WAS TOLERATING T-PIECE TRIAL WELL WITH SP02 96% ON 40% FIO2, HR 98, RR 17, BS CLEAR/DIMINISHED T/O. DR HUGHES MADE ROUNDS AND GAVE VERBAL ORDER TO EXTUBATE PT WITH NO WEANING PARAMETERS, OR SECOND CPAP TRIAL. DR HUGHES PLACED ORDER TO EXTUBATE. PT WS EXTUBATED WITH RN AT BEDSIDE AT 15:30, AND PLACED ON 40% FIO2 COOL AEROSOL MASK. PT TOLERATING EXTUBATION WELL. POST EXTUBATION SPO2 96% ON 40%FIO2 COOL AEROSOL MASK, HR 101, RR 22, BS CLEAR T/O. PT SX ORALLY FOR SMALL AMOUNT OF THICK, WHITE, SECRETIONS.
--- NOTE | 2019-06-11 15:30 | NUR ---
Patient extubated and placed on 40% FIO2 via cool mist aerosol mask.
--- NOTE | 2019-06-11 15:33 | NUR ---
Patient extubated and placed on Addendum: 06/11/19 at 1537 by Amy Mcleod RN RN ERROR
[2019-06-11] MEDS ORDERED: VANCOMYCIN 500 MG in D5W 5% 100 ML IV SCH (16:00)
--- NOTE | 2019-06-11 18:35 | NUR ---
Dinner tray provided. Patient was assisted with his meals by the RN. No s/s of aspiration noted.
--- NOTE | 2019-06-11 19:00 | NUR ---
Patient placed on 2L via NC. Oxygen saturation is 92%. No s/s of distress noted.
--- NOTE | 2019-06-11 19:35 | NUR ---
OPENING SHIFT NOTE ASSUMED CARE OF PATIENT ALERT AND ORIENTED X1, PUPILS REACTIVE TO LIGHT. LUNG SOUNDS COURSE ON NC 4L, NO S/S OF RESP DISTRESS. SR ON [employer] SALES BEAUTY ADVISOR. RIJ 3L PATENT AND INTACT. NGUYEN CATHETER PATENT AND DRAINING YELLOW URINE TO GRAVITY. SKIN INTACT. GENTLE OPTIFOAM SACRAL DRESSING IN PLACE. BED IN LOWEST LOCKED POSITION, SAFETY PRECAUTIONS IN PLACE, PT IN FULL VIEW OF NURSES STATION. VSS. NO INDICATION OF PAIN NOTED. WILL CONTINUE TO MONITOR.
[2019-06-12] VITALS (14 sets, daily range): BP systolic 100–139; BP diastolic 42–92
[2019-06-12] MEDS: IPRATROPIUM BROM 0.5 MG/2.5ML INH SOL NEB SCH ×6 (02:17→22:15)
[2019-06-12] MEDS: ALBUTEROL SULF 2.5 MG/0.5ML(0.5%) NEB SOLN NEB SCH ×6 (02:17→22:15)
[2019-06-12] MEDS: ACETYLCYSTEINE 10 %(100MG/ML) SOL 4ML NEB SCH ×6 (02:17→22:15)
[2019-06-12] MEDS: MEROPENEM 1GM IVPB 100 ML IV SCH (04:28)
--- NOTE | 2019-06-12 04:52 | NUR ---
PARTIAL LINEN CHANGE AND BED BATH DONE AT THIS TIME. SKIN ASSESSED FOR ANY CHANGES. VSS. PT CONFUSED, REORIENTED PATIENT, BED IN LOWEST LOCKED POSITION IN FULL VIEW OF NURSES STATION. SAFETY PRECAUTIONS IN PLACE. VSS. WILL CONTINUE TO MONITOR.
--- NOTE | 2019-06-12 08:29 | NUR ---
Dr. Ren updated regarding patients status. Orders received to downgrade patient to FARIBA.
--- NOTE | 2019-06-12 09:05 | NUR ---
SBAR report given to LADI Salinas.
--- NOTE | 2019-06-12 09:35 | NUR ---
ANÍBAL SHULTZ received to FARIBA via gurney on child monitor, and portable 02. Patient transfered to bed, connected to unit monitoring and oxygen, and weighed by [facility]. Patient awake and oriented to self, hard of hearing, able to read lips, able to follow commands. No S/S of SOB or pain noted. Oxygen saturation 91%, on 2 LPM oxygen via nasal cannula. See interventions for complete assessment. Patient oriented to Floresita Avila primary RN and POC. Bed locked on low position, side rails up x2, bed alarms on at all times, call sal within reach, instructed to call for needed assistance.
[2019-06-12] MEDS: FLUCONAZOLE 200MG/100ML 100 ML IV SCH (10:27)
[2019-06-12] MEDS: methylPREDNISolone SOD SUCC 125 MG/2 ML VL IV SCH (10:28)
[2019-06-12] MEDS: ASPirin-EC 81 mg tab PO SCH (10:29)
[2019-06-12] MEDS: LOSARTAN POTASSIUM 50 MG TAB PO SCH (10:29)
[2019-06-12] MEDS: FUROSEMIDE 20 MG TAB PO SCH (10:29)
[2019-06-12] MEDS: FAMOTIDINE 20 MG TAB PO SCH (10:30)
[2019-06-12] MEDS: ENOXAPARIN SOD 30 MG/0.3 ML SYRINGE SC SCH (10:30)
[2019-06-12] MEDS: ALLOPURINOL 300 MG TAB PO SCH (10:30)
[2019-06-12 10:47] LABS: Hematocrit 39.7 % (41.0-53.0); Hemoglobin 13.3 g/dL (13.5-17.5); Mean Corpuscular Hgb Conc. 33.5 g/dL (32.0-36.0); Mean Corpuscular Volume 95.4 fL (80.0-100.0); Platelet Count (auto) 169 10^3/uL (140-450); Red Blood Cells 4.16 10^6/uL (4.5-5.90); Red Cell Distribution Width 16.3 % (11.8-14.3); White Blood Cell 5.8 10^3/uL (4.4-10.8)
--- NOTE | 2019-06-12 10:50 | NUR ---
Dr Ren at bedside, updated on patient's status. Patient seen and examined. Will carry out new orders.
[2019-06-12 10:57] LABS: Basophils % (manual) 0 (0.0-2.0); Blast Cells 0; Eosinophils % (manual) 0 (0-7); Myelocytes % 0; Promyelocytes % 0; Reactive Lymphocytes 0
[2019-06-12 11:40] LABS: Band Neutrophils % (manual) 1; Lymphocytes % (manual) 10 (10.0-50.0); Metamyelocytes % 2; Monocytes % (manual) 4 (0-12)
--- NOTE | 2019-06-12 11:52 | NUR ---
Patient's Estela at bedside, updated on patient's status and POC. verbalized understanding. All questions and concerns addressed. Patient's white metal ring given to .
--- NOTE | 2019-06-12 15:08 | NUR ---
Dr Barry at bedside, updated on patient's status. Patient seen and examined. Will carry out new orders.
--- NOTE | 2019-06-12 19:30 | NUR ---
REPORT RECEIVED, ASSUMED CARE.
--- NOTE | 2019-06-12 20:18 | NUR ---
PT HAVING DIFFICULTY EATING DINNER. PT COUGHING A LOT AND DROOLING. PLACED SWALLOW EVALUATION.
[2019-06-12] MEDS: DOCUSATE SOD 100 MG CAP PO SCH (21:04)
--- NOTE | 2019-06-12 22:33 | NUR ---
PT REQUESTING HELP WITH SLEEPING.
[2019-06-12] MEDS ORDERED: TEMAZEPAM 15 MG CAP PO ONE (23:15)
--- NOTE | 2019-06-12 23:30 | NUR ---
CALLBACK HOSPITALIST, ORDERS RECEIVED. WILL CONT TO MONITOR AND GIVE IN REPORT.
[2019-06-13] MEDS: ALBUTEROL SULF 2.5 MG/0.5ML(0.5%) NEB SOLN NEB SCH ×6 (02:04→23:29)
[2019-06-13] MEDS: ACETYLCYSTEINE 10 %(100MG/ML) SOL 4ML NEB SCH ×6 (02:04→23:29)
[2019-06-13] MEDS: IPRATROPIUM BROM 0.5 MG/2.5ML INH SOL NEB SCH ×6 (02:04→23:29)
[2019-06-13 04:00] VITALS: BP 128/77
[2019-06-13 08:00] VITALS: BP 136/74
--- NOTE | 2019-06-13 08:30 | NUR ---
Assisted patient eating dinner, aspiration precaution in placed, consumed 75% of dinner tray. Patient tolerated well.
--- NOTE | 2019-06-13 08:30 | NUR ---
Opening Shift Note Assumed care of patient, laying in bed, patient deaf, awaiting for to bring hearing aid, arousable to shaking, patient was given Restoril at 12 midnight, patient oriented to self, able to follow simple commands, re-orientation done. No S/S of distress/SOB or pain. Patient oxygen saturation 100% at 3 LPM oxygen via nasal cannula. See interventions for complete assessment. Bed locked on low position, side rails up x2, bed alarms on at all times, call sal within reach, instructed on POC and to call for assist PRN, will continue to monitor for changes Q1hr and PRN.
--- NOTE | 2019-06-13 08:36 | NUR ---
Attempted PT eval but pt was unable to be aroused enough to participate. Consulted with RN, will attempt again later.
--- NOTE | 2019-06-13 09:32 | NUR ---
Patient's Estela at bedside, updated on patient's status and POC. Estela verbalized understanding. All questions and concerns addressed.
[2019-06-13] MEDS: FLUCONAZOLE 200MG/100ML 100 ML IV SCH (10:43)
[2019-06-13] MEDS: FAMOTIDINE 20 MG TAB PO SCH (10:45)
[2019-06-13] MEDS: DOCUSATE SOD 100 MG CAP PO SCH ×2 (10:45→21:15)
[2019-06-13] MEDS: ALLOPURINOL 300 MG TAB PO SCH (10:45)
[2019-06-13] MEDS: ASPirin-EC 81 mg tab PO SCH (10:45)
[2019-06-13] MEDS: LEVOFLOXACIN 500 MG TAB PO SCH (10:46)
[2019-06-13] MEDS: FUROSEMIDE 20 MG TAB PO SCH (10:46)
[2019-06-13] MEDS: predniSONE 20 MG TAB PO SCH (10:46)
[2019-06-13] MEDS: LOSARTAN POTASSIUM 50 MG TAB PO SCH (10:47)
[2019-06-13] MEDS: ENOXAPARIN SOD 30 MG/0.3 ML SYRINGE SC SCH (10:48)
[2019-06-13 12:00] VITALS: BP 114/71
--- NOTE | 2019-06-13 12:22 | NUR ---
Nutrition Follow-up Notes Wt.: 120.3 kg Pt's successfully extubated sleeping with no family by bedside. pt s/p ST eval and now advanced to cardiac ground diet with inadequate PO of < 50% x 4 per RN doc Est. Needs ABW [id number] kcal (23-25 kcal/kgBW), 80-100 gms pro (0.8-1.0 gms/kgBW). Will continue to monitor pertinent labs and reassess nutrient need prn Labs: BUN 32 H, ALB 2.1 L, GLU 123 H Skin: Rogelio scale 14, mod risk, pt's with blanchable redness sacrum per lead ramp agent. Pls refer to latest textile designer's notes for further details re: tx plans. GI: Pt had 1 BM 06/06/19 constipated per lead ramp agent. PES: Increased nutrient needs r/t acute/chronic medical condition aeb intubated, sedated, severe hypoalbuminemia, NPO. Altered nutrition related lab values r/t current/chronic medical condition aeb elev BUN hyperglycemia, mod hypoalb Decreased nutrient needs r/t adiposity aeb pt`s high BMI of 31.1 kgm2 Will continue to monitor PO intake, skin status, pertinent labs and weight trend. F/u in 3-5 days. Rec.: 1.) Consider ensure Enlive 1 carton bid if PO continues to be low. 2) If Albumin continues trending down, consider Prostat 1 pkt BID 4.) Consider daily MVI with minerals and Asc acid 500 mgs BID. 5.) Consider close supervision and feeding assistance prn during meals. 6.) Refer to RD for further nutrition educ. and weight monitoring upon discharge. 7.) Continue current plan of care.
--- NOTE | 2019-06-13 12:40 | NUR ---
SWALLOW EVALUATED. PATIENT HAS SOME TEETH. PATIENT ABLE TO TOLERATE PUREE DIET TEXTURE WITH NECTAR THICKENED LIQUIDS WITH NO OVERT SIGNS OR SYMPTOMS OF ASPIRATION. PATIENT COUGHED ON TRIAL OF THIN LIQUIDS. PATIENT HAS VERY WEAK COUGH. NURSING NOTIFIED.
--- NOTE | 2019-06-13 13:28 | NUR ---
Dr Bains at bedside, updated on patient's status. Patient seen and examined. Will carry out new orders.
[2019-06-13 16:00] VITALS: BP 125/76
[2019-06-13 20:00] VITALS: BP 120/73
--- NOTE | 2019-06-13 20:00 | NUR ---
SHIFT OPENING NOTE RECEIVED PATIENT AWAKE, ALERT AND ORIENTED X3. NO DISTRESS OR PAIN NOTED. COURSE LUNG SOUNDS, ORALLY SUCTIONED. POX 89-91%. ON 4L N/C, INCREASED TO 5L N/C. NGUYEN CATHETER IN PLACE DRAINING URINE TO GRAVITY. RIJ 3 LUMEN CENTRAL LINE SALINE LOCKED.PHYSICAL ASSESSMENT COMPLETED, SEE INTERVENTIONS. INSTRUCTED ON POC AND TO CALL FOR ASSIST NEEDED. BED IS IN THE LOWEST POSITION WITH SIDE RAILS UP X2, CALL LIGHT IS WITHIN REACH.
[2019-06-14] VITALS: BP 119/74
[2019-06-14] MEDS: ACETYLCYSTEINE 10 %(100MG/ML) SOL 4ML NEB SCH ×6 (02:49→22:59)
[2019-06-14] MEDS: IPRATROPIUM BROM 0.5 MG/2.5ML INH SOL NEB SCH ×6 (02:49→22:59)
[2019-06-14] MEDS: ALBUTEROL SULF 2.5 MG/0.5ML(0.5%) NEB SOLN NEB SCH ×6 (02:49→22:59)
--- NOTE | 2019-06-14 03:45 | NUR ---
MORNING HYGIENE CARE FULL BED BATH PERFORMED USING CHG WIPES AND WARM SOAPY WASH CLOTHES. GOWN CHANGED. PARTIAL LINEN CHANGED. SKIN REASSESSED AT THIS TIME WITH NO NEW CHANGES. PATIENT REPOSITIONED FOR COMFORT. TOLERATED IT WELL.
--- NOTE | 2019-06-14 07:00 | NUR ---
REPORT RECEIVED FROM COMPOSITION WEATHERBOARD APPLIER NURSE. PATIENT RESTING IN BED AT THIS TIME. RESPIRATIONS EVEN BUT LABORED, ADJUSTED OXYGEN BY PLACING PATIENT ON OXYMIZER AT 8.0 LITERS. SATURATIONS INCREASED TO 96%. HOB ELEVATED 90 DEGREES. BED IN LOW POSITION. CALL LIGHT IN REACH, WILL CONTINUE TO MONITOR.
--- NOTE | 2019-06-14 07:00 | NUR ---
END OF SHIFT PATIENT IS QUIETLY LAYING IN BED AWAKE. ON 5L N/C. NO SOB, DISTRESS OR PAIN NOTED. WILL GIVE REPORT AND ENDORSE CARE TO THE DAY SHIFT RN.
[2019-06-14 08:00] VITALS: BP 117/76
--- NOTE | 2019-06-14 09:15 | NUR ---
SPOKE TO DR Filippo SANDERS ABOUT PATIENTS PERSISTENT RESPIRATORY STATUS INCREASED RATE WELL NEED FOR OXYGEN AND CRACKLES DURING AUSCULTATION. PER MD ADMINISTER LASIX 20MG IVP. WILL CONTINUE TO MONITOR.
[2019-06-14] MEDS ORDERED: FUROSEMIDE 20 MG/2 ML VIAL ONE (09:21)
[2019-06-14] MEDS ORDERED: FUROSEMIDE 20 MG/2 ML VIAL IV ONE (09:30)
--- NOTE | 2019-06-14 09:38 | NUR ---
DR Filippo SANDERS AT BEDSIDE TO ASSESS PATIENT AND DISCUSS PLAN OF CARE. NO NEW ORDERS AT THIS TIME.
[2019-06-14] MEDS: ASPirin-EC 81 mg tab PO SCH (09:41)
[2019-06-14] MEDS: LEVOFLOXACIN 500 MG TAB PO SCH (09:41)
[2019-06-14] MEDS: FAMOTIDINE 20 MG TAB PO SCH (09:41)
[2019-06-14] MEDS: DOCUSATE SOD 100 MG CAP PO SCH ×2 (09:41→22:39)
[2019-06-14] MEDS: FLUCONAZOLE 200MG/100ML 100 ML IV SCH (09:42)
[2019-06-14] MEDS: predniSONE 20 MG TAB PO SCH (09:42)
[2019-06-14] MEDS: LOSARTAN POTASSIUM 50 MG TAB PO SCH (09:42)
[2019-06-14] MEDS: FUROSEMIDE 20 MG TAB PO SCH (09:43)
[2019-06-14] MEDS: ALLOPURINOL 300 MG TAB PO SCH (09:43)
[2019-06-14] MEDS: ENOXAPARIN SOD 30 MG/0.3 ML SYRINGE SC SCH (09:44)
[2019-06-14 10:12] LABS: Basophils # (auto) 0 uL; Basophils % (auto) 0.2 % (0.0-2.0); Eosinophils # (auto) 0 uL; Hematocrit 43.3 % (41.0-53.0); Hemoglobin 14.1 g/dL (13.5-17.5); Lymphocytes # (auto) 0.8 uL; Lymphocytes % (auto) 5.9 % (10.0-50.0); Mean Corpuscular Hemoglobin 31.1 pg (28.0-32.0); Mean Corpuscular Hgb Conc. 32.5 g/dL (32.0-36.0); Mean Corpuscular Volume 95.6 fL (80.0-100.0); Monocytes # (auto) 0.3 uL; Monocytes % (auto) 2.7 % (0.0-12.0); Neutrophils # (auto) 11.7 uL; Neutrophils % (auto) 91.2 % (37.0-80.0); Platelet Count (auto) 154 10^3/uL (140-450); Red Blood Cells 4.53 10^6/uL (4.5-5.90); Red Cell Distribution Width 16.1 % (11.8-14.3); White Blood Cell 12.8 10^3/uL (4.4-10.8)
[2019-06-14 10:25] LABS: Albumin 2.2 g/dL (3.4-5.0); Calcium 8.7 mg/dL (8.5-10.1); Potassium 3.2 mmol/L (3.5-5.1)
[2019-06-14 10:30] LABS: Bilirubin, Total 0.6 mg/dL (0.2-1.0); Total Protein 5.2 g/dL (6.4-8.2)
[2019-06-14 11:50] VITALS: BP 91/59
[2019-06-14] MEDS ORDERED: FUROSEMIDE 40 MG/4 ML VIAL IV ONE (13:00)
--- NOTE | 2019-06-14 14:10 | NUR ---
SPOKE TO DR Filippo SANDERS ABOUT PATIENT POTASSIUM LEVEL OF 3.2, PER MD POTASSIUM IVPB 40MEQ X 1 DOSE. ALL ORDERS NOTED IN CHART.
[2019-06-14] MEDS: POTASSIUM CHL 20MEQ/100ML 100 ML IV SCH ×2 (15:51→18:30)
[2019-06-14] MEDS ORDERED: Ensure HIGH Protein Chocolate 8oz Bottle PO SCH (18:00)
--- NOTE | 2019-06-14 19:25 | NUR ---
OPENING SHIFT RECEIVED REPORT FROM DAY SHIFT RN. ASSUMED CARE OF PATIENT. PATIENT IN BED WATCHING TV WITH NO SIGNS OR SYMPTOMS OF SOB, PAIN OR DISTRESS. CURRENTLY ON 8L 02 VIA OXYMIZER, 02 SAT - 96%. RIGHT INTRAJUGULAR X3 - CLEAN/DRY/INTACT. NGUYEN HUNG TO GRAVITY ON BED RAIL. REPOSITIONED FOR COMFORT. UPDATED PATIENT ON PLAN OF CARE. WILL CONTINUE TO MONITOR.
[2019-06-14 20:00] VITALS: BP 86/59
[2019-06-14 21:00] VITALS: BP 100/58
[2019-06-14 22:30] VITALS: BP 100/58
[2019-06-15] VITALS (9 sets, daily range): BP systolic 99–119; BP diastolic 51–77
[2019-06-15] MEDS: ALBUTEROL SULF 2.5 MG/0.5ML(0.5%) NEB SOLN NEB SCH ×6 (02:18→22:38)
[2019-06-15] MEDS: ACETYLCYSTEINE 10 %(100MG/ML) SOL 4ML NEB SCH ×6 (02:18→22:38)
[2019-06-15] MEDS: IPRATROPIUM BROM 0.5 MG/2.5ML INH SOL NEB SCH ×6 (02:18→22:38)
[2019-06-15 06:49] LABS: Albumin 2.1 g/dL (3.4-5.0); BUN/Creatinine Ratio 51.4; Calcium 8.3 mg/dL (8.5-10.1)
[2019-06-15 06:52] LABS: Bilirubin, Total 0.5 mg/dL (0.2-1.0); Total Protein 4.7 g/dL (6.4-8.2)
--- NOTE | 2019-06-15 07:30 | NUR ---
END OF SHIFT REPORT GIVEN TO DAY SHIFT RN. CARE ENDORSED.
--- NOTE | 2019-06-15 08:00 | NUR ---
OPEN RECEIVED REPORT FROM NIGHT RN. ASSUMED CARE OF FARIBA PATIENT, FULL CODE STATUS. PATIENT A & O X4, FOLLOWS COMMANDS. NO PAIN AT THIS TIME. SEE ELECTROPLATER HELPER FOR FURTHER PATIENT INFORMATION. CONTINUE CARE.
[2019-06-15] MEDS: LOSARTAN POTASSIUM 50 MG TAB PO SCH (10:00)
[2019-06-15] MEDS: FLUCONAZOLE 200MG/100ML 100 ML IV SCH (10:19)
[2019-06-15] MEDS: DOCUSATE SOD 100 MG CAP PO SCH ×2 (10:23→22:35)
[2019-06-15] MEDS: ENOXAPARIN SOD 30 MG/0.3 ML SYRINGE SC SCH (10:23)
[2019-06-15] MEDS: ASPirin-EC 81 mg tab PO SCH (10:23)
[2019-06-15] MEDS: ALLOPURINOL 300 MG TAB PO SCH (10:24)
[2019-06-15] MEDS: predniSONE 20 MG TAB PO SCH (10:24)
[2019-06-15] MEDS: FAMOTIDINE 20 MG TAB PO SCH (10:24)
[2019-06-15] MEDS: FUROSEMIDE 20 MG TAB PO SCH (10:25)
[2019-06-15] MEDS: LEVOFLOXACIN 500 MG TAB PO SCH (10:25)
--- NOTE | 2019-06-15 10:30 | NUR ---
DR. HUGHES AT BEDSIDE:ORDERS MD UPDATED ON PT'S STATUS. MD TALKING WITH PATIENT AT BEDSIDE. ORDERS GIVEN AND TO BE CARRIED OUT. CONTINUE CARE.
--- NOTE | 2019-06-15 14:00 | NUR ---
FAMILY PATIENT'S AT BEDSIDE. UPDATED HER ON PT'S STATUS AND POC FOR TODAY. REMAINS AT BEDSIDE. WILL CONTINUE TO MONITOR.
[2019-06-15] MEDS: OXYMETAZOLINE HCL 0.05 % NASAL SPRAY 15ML PRN (15:57)
--- NOTE | 2019-06-15 19:25 | NUR ---
OPENING SHIFT RECEIVED REPORT FROM DAY SHIFT RN. ASSUMED CARE OF PATIENT. PATIENT IN BED WATCHING TV WITH NO SIGNS OR SYMPTOMS OF SOB, PAIN OR DISTRESS. CURRENTLY ON 5L 02 OXYMIZER, 02 SAT - 96%. REPOSITIONED FOR COMFORT. RIGHT INTRAJUGULAR X3 - CLEAN/DRY/INTACT. NGUYEN HUNG TO GRAVITY ON BED RAIL. REPOSITIONED FOR COMFORT. BED IN LOWEST POSITION, SIDE RAILS UP X2, CALL LIGHT WITHIN REACH. WILL CONTINUE TO MONITOR.
--- NOTE | 2019-06-15 20:15 | NUR ---
BIPAP PATIENT REQUESTING TO BE PLACED ON BIPAP AT THIS TIME. WILL CONTINUE TO MONITOR.
[2019-06-16] VITALS (7 sets, daily range): BP systolic 98–116; BP diastolic 62–78
[2019-06-16] MEDS: ALBUTEROL SULF 2.5 MG/0.5ML(0.5%) NEB SOLN NEB SCH ×6 (02:45→22:18)
[2019-06-16] MEDS: IPRATROPIUM BROM 0.5 MG/2.5ML INH SOL NEB SCH ×6 (02:45→22:18)
[2019-06-16] MEDS: ACETYLCYSTEINE 10 %(100MG/ML) SOL 4ML NEB SCH ×6 (02:45→22:18)
[2019-06-16 05:54] LABS: Basophils # (auto) 0 uL; Basophils % (auto) 0.1 % (0.0-2.0); Eosinophils # (auto) 0 uL; Eosinophils % (auto) 0.3 % (0.0-7.0); Hematocrit 40.3 % (41.0-53.0); Hemoglobin 13.2 g/dL (13.5-17.5); Lymphocytes # (auto) 0.5 uL; Lymphocytes % (auto) 3.3 % (10.0-50.0); Mean Corpuscular Hemoglobin 31.3 pg (28.0-32.0); Mean Corpuscular Hgb Conc. 32.8 g/dL (32.0-36.0); Mean Corpuscular Volume 95.3 fL (80.0-100.0); Monocytes # (auto) 0.2 uL; Monocytes % (auto) 1.4 % (0.0-12.0); Neutrophils # (auto) 13.3 uL; Neutrophils % (auto) 94.9 % (37.0-80.0); Platelet Count (auto) 111 10^3/uL (140-450); Red Blood Cells 4.22 10^6/uL (4.5-5.90); Red Cell Distribution Width 16.4 % (11.8-14.3)
--- NOTE | 2019-06-16 06:37 | NUR ---
Respiratory note: RECEIVED PATIENT ON RENTAL BIPAP FITTED WITH A SIZE "C" UNDER NOSE MASK AND MECHANICALLY VENTILATED WITH THE ABOVE CHARTED SETTINGS. SPO2 99%, LUNG SOUNDS DIM T/O. PATIENT IS ASLEEP BUT EASY TO AROUSE. HE IS TOLERATING BIPAP/MASK WELL; NO SKIN INTEGRITY ISSUES NOTED FROM BIPAP MASK. ALL ALARMS ARE SET AND AUDIBLE, AND BIPAP IS PLUGGED INTO RED OUTLET. FIO2 DECREASED TO 50%. MED-NEB RUN INLINE. Addendum: 06/16/19 at 0642 by Gustavo PAUL CORRECTION ON SKIN INTEGRITY: THERE IS AN ABRASION NOTED ON PATIENTS RIGHT UPPER CHEEK FROM FULL FACE MASK.
--- NOTE | 2019-06-16 07:30 | NUR ---
END OF SHIFT REPORT GIVEN TO DAY SHIFT RN. CARE ENDORSED.
--- NOTE | 2019-06-16 08:00 | NUR ---
Opening Shift Note Assumed care of patient, awake and alert. Patient A&Ox4. Patient on the monitor. Patient on 5L Oxymizer saturation at 95%. Right IJ triple lumen saline locked, patent, clean, dry, and intact. Wong to gravity. No S/S of distress/SOB or pain. Instructed on POC and to call for assist. Bed locked and in the lowest position, side rails up x2, call light with in reach. Will continue to monitor.
[2019-06-16] MEDS ORDERED: DOBUTamine 1000MCG/ML 100 ML IV ONE (08:30)
--- NOTE | 2019-06-16 08:46 | NUR ---
Respiratory note: SHADE
--- NOTE | 2019-06-16 08:46 | NUR ---
Respiratory note: PATIENT TAKEN OFF BIPAP AND PLACED ON 8LPM OXYMIZER. SPO2 MAINTAINED AT 96%, PATIENT TOLERATING OXYGEN INTERFACE CHANGE WELL.
--- NOTE | 2019-06-16 10:00 | NUR ---
Medication dosages, usages, and side effects explained to patient. Patient verbalized understanding. Will continue to monitor.
[2019-06-16] MEDS: FAMOTIDINE 20 MG TAB PO SCH (10:18)
[2019-06-16] MEDS: ASPirin-EC 81 mg tab PO SCH (10:18)
[2019-06-16] MEDS: DOCUSATE SOD 100 MG CAP PO SCH ×2 (10:18→22:27)
[2019-06-16] MEDS: ENOXAPARIN SOD 30 MG/0.3 ML SYRINGE SC SCH (10:18)
[2019-06-16] MEDS: ALLOPURINOL 300 MG TAB PO SCH (10:18)
[2019-06-16] MEDS: FLUCONAZOLE 100 MG TAB PO SCH (10:20)
[2019-06-16] MEDS: LOSARTAN POTASSIUM 50 MG TAB PO SCH (10:20)
[2019-06-16] MEDS: LEVOFLOXACIN 500 MG TAB PO SCH (10:20)
[2019-06-16] MEDS: FUROSEMIDE 20 MG TAB PO SCH (10:21)
[2019-06-16] MEDS: predniSONE 20 MG TAB PO SCH (10:21)
--- NOTE | 2019-06-16 11:15 | NUR ---
Report given to Ria. Patient going to room 201 on tele box 41.
--- NOTE | 2019-06-16 13:36 | NUR ---
RECEIVED PT TO ROOM 201 AT APPROX. 1200. A/O X 4. HARD OF HEARING. EXPLAINED TO PT HE IS NPO BECAUSE OF STRESS TEST. PT VERBALIZED UNDERSTANDING. REQUESTING BREATHING TX APPROX. 1300, RESP NOTIFIED. PULSE 108, 02 SATS 92% ON 6 LITERS VIA OPTIMIZER.
--- NOTE | 2019-06-16 14:16 | NUR ---
Nutrition Follow-up Notes Wt.: 120.3 kg as of 06/13/19 Pt's on oxymizer, asleep, no immediate family member at bedside when rounded this morning. Pt's no signs of distress earlier, currently NPO for a procedure today, likely to resume oral diet today with active order for Pureed Cardiac diet. Est. Needs ABW [id number] kcal (23-25 kcal/kgBW), 80-100 gms pro (0.8-1.0 gms/kgBW). Will continue to monitor pertinent labs and reassess nutrient need prn Labs: Gluc 121 H, BUN 37 H, Ca 8.3 L, Tpro 4.7 L, Alb 2.1 L Skin: Rogelio scale 15, mod risk, pt's with blanchable redness medial sacrum per product support sales representative. Pls refer to latest ladle handler's notes for further details re: tx plans. GI: Pt had 1 BM 06/06/19 constipated per product support sales representative. PES: Resolved: Increased nutrient needs r/t acute/chronic medical condition aeb intubated, sedated, severe hypoalbuminemia, NPO. Altered nutrition related lab values r/t current/chronic medical condition aeb elev BUN hyperglycemia, mod hypoalb Decreased nutrient needs r/t adiposity aeb pt`s high BMI of 31.1 kgm2 Will continue to monitor NPO status/PO intake, skin status, pertinent labs and weight trend. F/u in 3 to 5 days. Rec.: 1.) Consider close supervision and feeding assistance prn during meals. 2.) If Albumin continues trending down, consider Prostat 1 pkt BID 3.) Consider daily MVI with minerals and Asc acid 500 mgs BID. 4.) Refer to RD for further nutrition educ. and weight monitoring upon discharge. 5.) Continue current plan of care.
[2019-06-16] MEDS: OXYMETAZOLINE HCL 0.05 % NASAL SPRAY 15ML PRN (15:34)
--- NOTE | 2019-06-16 19:30 | NUR ---
received pt from day rn poc reviewed
--- NOTE | 2019-06-16 20:51 | NUR ---
pt positioned with hob up high cline, non productive cough, resp even and unlabored, call light within reach, discussed poc all needs met
--- NOTE | 2019-06-16 22:25 | NUR ---
both right and left ear hearing aids placed in pts silver container and plugged in as pt requested, scd,s intact, rt at bedside
[2019-06-17] MEDS: IPRATROPIUM BROM 0.5 MG/2.5ML INH SOL NEB SCH ×5 (02:20→17:39)
[2019-06-17] MEDS: ALBUTEROL SULF 2.5 MG/0.5ML(0.5%) NEB SOLN NEB SCH ×5 (02:20→17:39)
[2019-06-17] MEDS: ACETYLCYSTEINE 10 %(100MG/ML) SOL 4ML NEB SCH ×5 (02:21→17:39)
--- NOTE | 2019-06-17 04:45 | NUR ---
resting comfortable on bipap resp even and unlabored, call light within reach,
[2019-06-17 05:00] VITALS: BP 116/76
--- NOTE | 2019-06-17 06:57 | NUR ---
report given to am nurse poc reviewed
--- NOTE | 2019-06-17 07:33 | NUR ---
Respiratory note: PT REMOVED FROM THE BIPAP AND HAS BEEN PLACED ON A 5L OXYMIZER. NO SOB NOTED. CONTINUOUS POX REMAINS ATTACHED TO PT'S FINGER AND FUNCTIONAL. POX 95%, RR 18, HR 90.
[2019-06-17 08:34] VITALS: BP 129/84
--- NOTE | 2019-06-17 09:19 | NUR ---
Respiratory note:PT ORALLY SUCTIONED VIA [facility] FOR A MODERATE AMOUNT OF THICK YELLOW SECRETIONS POST MED NEB TX.
[2019-06-17] MEDS: predniSONE 20 MG TAB PO SCH (10:00)
[2019-06-17] MEDS: ASPirin-EC 81 mg tab PO SCH (10:00)
[2019-06-17] MEDS: DOCUSATE SOD 100 MG CAP PO SCH (10:45)
[2019-06-17] MEDS: LEVOFLOXACIN 500 MG TAB PO SCH (10:46)
[2019-06-17] MEDS: FLUCONAZOLE 100 MG TAB PO SCH (10:46)
[2019-06-17] MEDS: LOSARTAN POTASSIUM 50 MG TAB PO SCH (10:46)
[2019-06-17] MEDS: ALLOPURINOL 300 MG TAB PO SCH (10:47)
[2019-06-17] MEDS: FAMOTIDINE 20 MG TAB PO SCH (10:47)
[2019-06-17] MEDS: FUROSEMIDE 20 MG TAB PO SCH (10:48)
[2019-06-17] MEDS: ENOXAPARIN SOD 30 MG/0.3 ML SYRINGE SC SCH (10:48)
[2019-06-17 13:00] VITALS: BP 119/84
[2019-06-17] MEDS ORDERED: LACTULOSE 20Gm/30ML SOLN PO ONE (14:30)
--- NOTE | 2019-06-17 15:17 | NUR ---
D/C Planning Per consult for home health for SNF placement with nebulizer treatment q4h, chest percussion qid, suction PRN, oxygen supplement keep SPO2 92-96%, BiPAP 12/6 continuous at night. ( Dx: Chronic muscular dystrophy, Laryngotracheobronchitis). Occupational Therapy and range of motion of UE and IE. Pt Estela was at bedside when Information and Choice letter was given to Pt. Pt and requested [facility]. Pt and verbalize understanding d/c plan. Contacted [facility]:) Fax:( [phone]) faxed medical records spoke to Emily. Advised Emily equipment is needed prior to Pt arriving to facility. Per Emily equipment will arrived to facility at 18:00. [facility] spoke to Marco A. Advised Marco A from [facility] to arrange transportation at 19:00 via gurney with oxygen. Informed LADI Rollins. Addendum: 06/17/19 at 1536 by NICOL SALAMANCA Amended: Links added.
--- NOTE | 2019-06-17 16:15 | NUR ---
PT TO BE DISCHARGED TO [facility] ROOM 9B, CORPORATE RELATIONS DIRECTOR TIME AT 1900. CURT NOTIFIED VIA TELEPHONE. PT AWARE.
[2019-06-17 17:26] VITALS: BP 102/70
--- NOTE | 2019-06-17 18:52 | NUR ---
report called to Martha Walsh receiving nurse at [facility]. Triple Lumen catheter to right IJ removed at this time, pressure dressing applied. tip intact, minimal bleeding noted. pt tolerated without difficulty. awaiting transport at this time to facility.
--- NOTE | 2019-06-17 19:19 | NUR ---
TRANSPORT HERE AT THIS TIME, PT TO BE TRANSPORTED TO [facility] VIA AMBULANCE.
[2019-06-18] MEDS ORDERED: predniSONE 20 MG TAB PO SCH (10:00)
== END 2019-06-17 19:25 | DRG 207 ==
LOC: ER 08:40 → EDBD 08:40 → TELE 08:41 → TELE-WESTW 17:14 → DOU IN ICU 06-05 16:15 → ICU WEST 06-06 17:01 → DOU IN ICU 06-12 09:39 → TELE-CENTR 06-16 12:05
PROVIDERS: ADMIT Nurse Practitioner Acute Care; ATTEND Internal Medicine
PROC: 5A09357 Assistance with Respiratory Ventilation, Less than 24 Consecutive Hours, Continuous Positive Airway Pressure (ICD-10-PCS; 2019-06-03)
PROC: 5A09357 Assistance with Respiratory Ventilation, Less than 24 Consecutive Hours, Continuous Positive Airway Pressure (ICD-10-PCS; 2019-06-04)
PROC: 0B968ZZ Drainage of Right Lower Lobe Bronchus, Via Natural or Artificial Opening Endoscopic (ICD-10-PCS; 2019-06-05)
PROC: 5A09357 Assistance with Respiratory Ventilation, Less than 24 Consecutive Hours, Continuous Positive Airway Pressure (ICD-10-PCS; 2019-06-05)
PROC: 5A1955Z Respiratory Ventilation, Greater than 96 Consecutive Hours (ICD-10-PCS; principal; 2019-06-06)
PROC: 0BH17EZ Insertion of Endotracheal Airway into Trachea, Via Natural or Artificial Opening (ICD-10-PCS; 2019-06-06)
PROC: 5A09357 Assistance with Respiratory Ventilation, Less than 24 Consecutive Hours, Continuous Positive Airway Pressure (ICD-10-PCS; 2019-06-06)
PROC: 02HV33Z Insertion of Infusion Device into Superior Vena Cava, Percutaneous Approach (ICD-10-PCS; 2019-06-07)
DX: J96.21 Acute and chronic respiratory failure with hypoxia (principal); J69.0 Pneumonitis due to inhalation of food and vomit; A41.9 Sepsis, unspecified organism; R65.21 Severe sepsis with septic shock; E43 Unspecified severe protein-calorie malnutrition; I50.42 Chronic combined systolic (congestive) and diastolic (congestive) heart failure; J44.0 Chronic obstructive pulmonary disease with (acute) lower respiratory infection; E87.1 Hypo-osmolality and hyponatremia; I11.0 Hypertensive heart disease with heart failure; G71.00 Muscular dystrophy, unspecified; E78.5 Hyperlipidemia, unspecified; F17.200 Nicotine dependence, unspecified, uncomplicated; E66.01 Morbid (severe) obesity due to excess calories; G72.41 Inclusion body myositis [IBM]; G47.33 Obstructive sleep apnea (adult) (pediatric); T38.0X5A Adverse effect of glucocorticoids and synthetic analogues, initial encounter; J40 Bronchitis, not specified as acute or chronic; M10.9 Gout, unspecified; Z82.3 Family history of stroke; Z79.82 Long term (current) use of aspirin; Z83.3 Family history of diabetes mellitus; Z99.3 Dependence on wheelchair; Z88.0 Allergy status to penicillin; Z68.33 Body mass index [BMI] 33.0-33.9, adult; Z82.49 Family history of ischemic heart disease and other diseases of the circulatory system; Y92.89 Other specified places as the place of occurrence of the external cause; Z74.01 Bed confinement status
CPT/HCPCS: 31624; 36415; 36600; 71045; 80048; 80053; 80202; 81001; 82550; 82805; 83605; 83735; 83880; 84484; 85007; 85025; 85027; 85610; 85730; 86850; 86900; 86901; 87040; 87070; 87077; 87081; 87186; 87205; 87804; 92507; 92610; 93005; 93306; 93971; 94002; 94003; 94640; 94660; 94668; 94761; 96365; 96367; 96375; 97163; 99291; A4565; C9113; G0378; J0171; J0330; J0696; J1450; J1956; J2185; J2250; J3480; J7060